=== PATIENT | male | born 1950 | race Caucasian/White ===

== ENCOUNTER → 2017-08-03 | Outpatient (CLI) | payer BC ==
[~2017-08-03] MED LIST: AMITRIPTYLINE H25 MG PO; AMITRIPTYLINE H50 MG PO; AMLODIPINE BESYL5 MG PO; IBUPROFEN600 MG PO; LISINOPRIL10 MG PO; LISINOPRIL30 MG PO; NORCO 7.5-3251 EACH PO; PANTOPRAZOLE SO40 MG PO; PREDNISONE20 MG PO
--- NOTE | 2017-08-03 13:48 | Diagnostic Imaging Report ---
PROCEDURE: Frontal and lateral views of the chest. COMPARISON: Patients [facility], , CHEST 2 VIEWS, 03/29/2015, 12:58. INDICATIONS: ACUTE BRONCHITIS FINDINGS: Lines/tubes: None. Lungs: Stable hyperinflated lungs and linear scarring in the superolateral right upper lung. No consolidation or pulmonary edema. Pleura: There is no pleural effusion or pneumothorax. Heart and mediastinum: The heart and the mediastinum are normal. Atherosclerotic calcification of the thoracic aorta. Bones: No acute bony abnormality. IMPRESSION: 1. Stable COPD and postoperative changes of prior wedge resection, without acute cardiopulmonary disease. Moreno George M.D. Dictated by: Moreno George M.D. on 08/03/2017 at 13:50 Electronically approved by: Moreno George M.D. on 08/03/2017 at 13:50
== END ==
LOC: RAD 11:36
DX: J20.9 Acute bronchitis, unspecified (principal)
CPT/HCPCS: 71046

== ENCOUNTER → 2017-11-21 | Outpatient (CLI) | payer BC ==
--- NOTE | 2017-11-21 15:40 | Diagnostic Imaging Report ---
PROCEDURE: CT CHEST WITHOUT CONTRAST CT scan of the chest WITHOUT intravenous contrast, using standard protocol. TECHNIQUE: The chest was scanned utilizing a multidetector helical scanner from the apex to the level of the adrenal glands. No IV contrast was administered. Coronal and sagittal multiplanar reformations were obtained. COMPARISON: 04/23/2015 INDICATIONS: SHORTNESS OF BREATH. PAIN ON INSPIRATION. COPD FINDINGS: Lines/tubes: None. Lungs and Airways: Severe centrilobular emphysema, unchanged. Subpleural scarring in the right upper lobe, unchanged. There are persistent scarlike opacities in the right middle lobe. The previously described centrilobular nodules and groundglass opacity in the right middle and lower lobes have significantly improved. These were likely infectious. The previously described ground glass opacities in the left upper lobe have also significantly improved. These were also likely infectious. No new consolidation or masses. Pleura: The pleural spaces are clear. Heart and mediastinum: The thyroid gland is normal. No significant mediastinal, hilar or axillary lymphadenopathy is seen. The heart and pericardium are within normal limits. There are atherosclerotic calcifications of the thoracic aorta and coronary arteries. Metallic artifacts around the distal esophagus and GE junction are presumably postsurgical. Soft tissues: Normal. Abdomen: Limited views of the upper abdomen. Metallic surgical clips in the left hepatic lobe and around the stomach. There are atherosclerotic calcifications of the aorta and its branches. There is a partially visualized subcentimeter hypodensity in the right kidney. This is incompletely evaluated. Bones: Mild multilevel degenerative changes of the thoracic spine. Cervical fusion hardware is partially visualized. IMPRESSION: Severe emphysema with multifocal scarring in both lungs. Scattered groundglass and nodular opacities described on prior examination (04/23/2015) have significantly improved and were likely infectious. No new focal consolidation or masses. Dictated by: Justice Acosta M.D. on 11/21/2017 at 15:46 Electronically approved by: Justice Acosta M.D. on 11/21/2017 at 15:46
== END ==
LOC: CT 13:29
PROVIDERS: ATTEND Internal Medicine Critical Care Medicine
DX: R06.02 Shortness of breath (principal); J18.9 Pneumonia, unspecified organism; J47.9 Bronchiectasis, uncomplicated; J84.10 Pulmonary fibrosis, unspecified; E46 Unspecified protein-calorie malnutrition
CPT/HCPCS: 71250

== ENCOUNTER 2018-07-21 14:21 | Emergency (ER) | payer BC, MEDICARE ==
[~2018-07-21] VITALS: Ht 175.3 cm; Wt 59.0 kg
--- OUTSIDE RECORDS SUMMARY | 2018-07-21 14:25 | XMS REPORT ---
Author Author [facility] Address Unknown Phone Unavailable Care Team Providers [employer] Custodian Name Role Phone Bipin SHETTY Unavailable Unavailable CALDERON, SOUHEFAVIO Unavailable Unavailable Payers Payer Name Policy Type Policy Number Effective Date Expiration Date Problems This patient has no known problems. Allergies, Adverse Reactions, Alerts Allergy Name Allergy Type Status Severity Reaction(s) Onset Date Inactive Date Treating Clinician Comments iodine DA Active SV 2014-09-17 00:00:00 Medications This patient has no known medications. Results Test Description Test Time Test Comments Text Results Atomic Results Result Comments CT CHEST WO 2017-11-21 15:46:00 [place] [address] Patient Name: FANNY VALDEZ MR #: [id number] : 1950 Age/Sex: 66/M Req #: [id number] Physician: Ordered by: RAHEEL SHETTY MD Report #: [id number] Location: CT Room/Bed: Procedure: [id number] CT/CT CHEST WO Exam Date: 11/21/17 Exam Time: 1345 REPORT STATUS: Signed PROCEDURE: CT CHEST WITHOUT CONTRAST CT scan of the chest WITHOUT intravenous contrast, using standard protocol. TECHNIQUE: The chest was scanned utilizing a multidetector helical scanner from the apex to the level of the adrenal glands. No IV contrast was administered. Coronal and sagittal multiplanar reformations were obtained. COMPARISON: 04/23/2015 INDICATIONS: SHORTNESS OF BREATH. PAIN ON INSPIRATION. COPD FINDINGS: Lines/tubes: None. Lungs and Airways: Severe centrilobular emphysema, unchanged. Subpleural scarring in the right upper lobe, unchanged. There are persistent scarlike opacities in the right middle lobe. The previously described centrilobular nodules and groundglass opacity in the right middle and lower lobes have significantly improved. These were likely infectious. The previously described ground glass opacities in the left upper lobe have also significantly improved. These were also likely infectious. No new consolidation or masses. Pleura: The pleural spaces are clear. Heart and mediastinum: The thyroid gland is normal. No significant mediastinal, hilar or axillary lymphadenopathy is seen. The heart and pericardium are within normal limits. There are atherosclerotic calcifications of the thoracic aorta and coronary arteries. Metallic artifacts around the distal esophagus and GE junction are presumably postsurgical. Soft tissues: Normal. Abdomen: Limited views of the upper abdomen. Metallic surgical clips in the left hepatic lobe and around the stomach. There are atherosclerotic calcifications of the aorta and its branches. There is a partially visualized subcentimeter hypodensity in the right kidney. This is incompletely evaluated. Bones: Mild multilevel degenerative changes of the thoracic spine. Cervical fusion hardware is partially visualized. IMPRESSION: Severe emphysema with multifocal scarring in both lungs. Scattered groundglass and nodular opacities described on prior examination (04/23/2015) have significantly improved and were likely infectious. No new focal consolidation or masses. Dictated by: Rodolfo Acosta M.D. on 11/21/2017 at 15:46 Electronically approved by: Rodolfo Acosta M.D. on 11/21/2017 at 15:46 Dictated By: RODOLFO ACOSTA MD [id number] Transcribed By: HUANG on 11/21/17 1546 COPY TO: RAHEEL SHETTY MD, ABI CHEST 2 VIEWS [place] [id number] Patient Name: FANNY VALDEZ MR #: [id number] : 1950 Age/Sex: 66/M Req #: [id number] [facility] Physician: Ordered by: FRANCISCA CALDERON MD Report #: [id number] Location: [facility] Room/Bed: Procedure: [id number] DX/CHEST 2 VIEWS Exam Date: 08/03/17 Exam Time: 1145 REPORT STATUS: Signed PROCEDURE: Frontal and lateral views of the chest. COMPARISON: [facility], DX, CHEST 2 VIEWS, 03/29/2015, 12:58. INDICATIONS: ACUTE BRONCHITIS FINDINGS: Lines/tubes: None. Lungs: Stable hyperinflated lungs and linear scarring in the superolateral right upper lung. No consolidation or pulmonary edema. Pleura: There is no pleural effusion or pneumothorax. Heart and mediastinum: The heart and the mediastinum are normal. Atherosclerotic calcification of the thoracic aorta. Bones: No acute bony abnormality. IMPRESSION: 1. Stable COPD and postoperative changes of prior wedge resection, without acute cardiopulmonary disease. Norberto George M.D. Dictated by: Norberto George M.D. on 08/03/2017 at 13:50 Electronically approved by: Norberto George M.D. on 08/03/2017 at 13:50 Dictated By: NORBERTO GEORGE MD [id number] Transcribed By: HUANG on 08/03/17 1350 COPY TO: FRANCISCA CALDERON MD
== END 2018-07-21 14:55 | disposition home or self-care (01) ==
LOC: ER 14:21
DX: T25.212A Burn of second degree of left ankle, initial encounter (principal); X12.XXXA Contact with other hot fluids, initial encounter; Y92.008 Other place in unspecified non-institutional (private) residence as the place of occurrence of the external cause; J44.9 Chronic obstructive pulmonary disease, unspecified; F17.210 Nicotine dependence, cigarettes, uncomplicated
CPT/HCPCS: 99282

== ENCOUNTER → 2018-09-25 | Outpatient (CLI) | payer MEDICARE ==
--- NOTE | 2018-09-25 15:30 | Diagnostic Imaging Report ---
PROCEDURE: CT CHEST WITHOUT CONTRAST CT scan of the chest WITHOUT intravenous contrast, using standard protocol. TECHNIQUE: The chest was scanned utilizing a multidetector helical scanner from the apex to the level of the adrenal glands. No IV contrast was administered because of referring physician request. Coronal and sagittal multiplanar reformations were obtained. COMPARISON: CT chest 11/21/2017. INDICATIONS: SOB, PNEUMONIA, BRO FINDINGS: Lines/tubes: None. Lungs and Airways: Advanced emphysematous changes with right greater than left apical pleural-parenchymal scar, not significantly changed compared to prior. Coarse reticular opacities compatible with additional scar in the right middle lobe, with new superimposed groundglass opacities. Patchy groundglass opacity in the dependent left lower lobe. Otherwise no new consolidations or suspicious nodules. 6-7 mm nodule in the was not evident on the prior study. Unchanged nodularity and scarring along the right major fissure. Pleura: The pleural spaces are clear. Heart and mediastinum: Visualized portions of the thyroid gland appear normal. Atherosclerotic calcification of the thoracic aorta, great vessel origins, and [place] coronary arteries. No ectasia or aneurysmal dilatation of the thoracic aorta. Pulmonary outflow tract is of normal caliber. No axillary, hilar, or mediastinal lymphadenopathy. No pericardial effusion. Soft tissues: No focal soft tissue abnormalities. Multiple foci of streak artifact presumably related to surgical material at the gastroesophageal junction. Abdomen: Visualized portions of the liver, adrenals, and pancreas are unremarkable. Calcified splenic granulomata. Bones: No osseous destructive lesions. Degenerative changes of the shoulder girdles. IMPRESSION: Patchy ground less opacities in the right middle lobe and left lower lobe concerning for multifocal infection. New 6-7 mm right upper lobe pulmonary nodule is likely infectious or inflammatory. Followup CT scan of the chest in one year may be obtained to assess for stability per [employer] 2017 guidelines. Advanced background emphysematous changes with biapical fibrocalcific change, right greater than left. Dictated by: Ted Barahona M.D. on 09/25/2018 at 15:34 Electronically approved by: Ted Barahona M.D. on 09/25/2018 at 15:34
== END ==
LOC: CT 13:54
PROVIDERS: ATTEND Internal Medicine Critical Care Medicine
DX: R06.02 Shortness of breath (principal); J18.9 Pneumonia, unspecified organism; J84.116 Cryptogenic organizing pneumonia; J47.9 Bronchiectasis, uncomplicated; J84.10 Pulmonary fibrosis, unspecified; M94.0 Chondrocostal junction syndrome [Tietze]; E46 Unspecified protein-calorie malnutrition; Z87.891 Personal history of nicotine dependence
CPT/HCPCS: 71250

== ENCOUNTER 2019-05-19 15:37 | Observation (INO) | payer MEDICARE ==
[~2019-05-19] VITALS: Ht 175.3 cm; Wt 64.4 kg
[2019-05-19] MEDS ORDERED: SODIUM CHLORIDE 0.9% 1000ML 1,000 ML IV STA (15:46)
[2019-05-19] MEDS ORDERED: METHYLPREDNISOLONE SOD SUCC 125 MG/2ML VIAL IV STA (16:03)
[2019-05-19] MEDS ORDERED: ASPIRIN 81 MG ENTERIC COATED PO ONE (16:12)
[2019-05-19] MEDS ORDERED: FAMOTIDINE 20 MG/2 ML VIAL IV STA (16:14)
[2019-05-19] MEDS ORDERED: ASPIRIN 81 MG CHEW TAB PO ONE (16:15)
[2019-05-19] MEDS ORDERED: DIPHENHYDRAMINE HCL INJ 50 MG/ML VIAL IV ONE ×2 (16:15→16:30)
[2019-05-19 16:27] LABS: BASOPHILS % 0.2 % (0.0-1.0); EOSINOPHILS # (AUTO) 0.2 (0.0-0.4); EOSINOPHILS % 2.1 % (0.0-6.0); HEMATOCRIT 42.2 % (38.2-49.6); HEMOGLOBIN 14.1 g/dL (14.0-18.0); LYMPHOCYTES # (AUTO) 2.1 (1.0-3.2); LYMPHOCYTES % 23.5 % (18.0-39.1); MEAN CORPUSCULAR HEMOGLOBIN 31.3 pg (28-32); MEAN CORPUSCULAR HGB CONC 33.4 g/dL (31-35); MEAN CORPUSCULAR VOLUME 93.8 fL (81-99); MONOCYTES # (AUTO) 0.7 (0.2-0.8); MONOCYTES % 7.6 % (4.4-11.3); NEUTROPHILS # (AUTO) 5.9 (2.1-6.9); NEUTROPHILS % 66.4 % (38.7-80.0); PLATELET COUNT 141 x10e3/uL (140-360); RED CELL DISTRIBUTION WIDTH 12.2 % (11.7-14.4)
[2019-05-19 16:33] LABS: INR 0.95; PROTHROMBIN TIME 13.2 seconds (11.9-14.5)
[2019-05-19 16:34] LABS: PARTIAL THROMBOPLASTIN TIME 35.4 seconds (23.8-35.5)
[2019-05-19 16:42] LABS: ALANINE AMINOTRANSFERASE 18 IU/L (0-55); ALBUMIN 4.3 g/dL (3.5-5.0); ALBUMIN/GLOBULIN RATIO 1.5 (0.8-2.0); ALKALINE PHOSPHATASE 75 IU/L (40-150); ANION GAP 11.6 mmol/L (8-16); BLOOD UREA NITROGEN 11 mg/dL (7-26); BUN/CREATININE RATIO 11 (6-25); CALCIUM 10.1 mg/dL (8.4-10.2); CARBON DIOXIDE 31 mmol/L (22-29); CHLORIDE 101 mmol/L (98-107); CREATINE KINASE 39 IU/L (30-200); CREATININE, SERUM 0.96 mg/dL (0.72-1.25); EST GLOMERULAR FILTRATION RATE > 60 ML/MIN (60-); GLUCOSE 100 mg/dL (74-118); POTASSIUM 3.6 mmol/L (3.5-5.1); SODIUM 140 mmol/L (136-145)
--- NOTE | 2019-05-19 17:26 | Diagnostic Imaging Report ---
EXAMINATION: CHEST SINGLE (PORTABLE) INDICATION: Chest pain COMPARISON: Chest CT 09/25/2018 FINDINGS: LINES/TUBES:None LUNGS:The lungs are hyperinflated. Bilateral upper lobe predominant emphysematous changes. Interstitial opacities at the right lower lung zone. PLEURA:No pleural effusion or pneumothorax. MEDIASTINUM:The cardiomediastinal silhouette appears normal in size and shape. Atherosclerotic calcifications of the thoracic aorta. BONES/SOFT TISSUES:No acute osseous injury. ABDOMEN:No free air under the diaphragm. IMPRESSION: Hyperinflated lungs and severe emphysematous changes. Interstitial right lower lung opacities, likely related to chronic lung disease. Signed by: Viral Lewis MD on 05/19/2019 5:23 PM
[2019-05-19] MEDS ORDERED: ENALAPRILAT IV INJ 1.25 MG/ML VIAL IV STA (18:15)
[2019-05-19] MEDS ORDERED: NITROGLYCERIN 0.4 MG SUBL SL PRN (18:15)
[2019-05-19] MEDS ORDERED: FAMOTIDINE 20 MG/2 ML VIAL IV SCH (18:15)
[2019-05-19] MEDS ORDERED: ENALAPRILAT IV INJ 1.25 MG/ML VIAL ONE (18:16)
[2019-05-19] MEDS: FAMOTIDINE 20 MG/2 ML VIAL IV SCH (18:21)
--- NOTE | 2019-05-19 19:12 | Diagnostic Imaging Report ---
EXAMINATION: CTA scan of the chest with and without contrast. TECHNIQUE: Spiral CT images of the chest were performed from the lung apices to the level of the adrenal glands before and after the intravenous administration of cc of Omnipaque 300. Coronal and sagittal reformatted images were obtained. COMPARISON: None. CLINICAL HISTORY:Chest pain DISCUSSION: Evaluation of the proximal aorta is limited by motion artifact as this is not a gated study AORTA AND PROXIMAL BRANCHES: The thoracic aorta shows no evidence of aneurysm or dissection. There is no evidence of intramural or periaortic hematoma. Moderate soft and calcified atherosclerotic plaque is noted predominantly in the descending aorta and to a lesser degree at the aortic arch. Two penetrating ulcers are noted in the descending aorta (series 5, images 93 and 98). There is preservation of the sinotubular junction. Common origin of the innominate and left common carotid. The innominate, proximal subclavian, and common carotid arteries are normal in size. The visualized abdominal aorta is normal in size, with atherosclerotic calcified and soft plaque. Measurements of the aorta obtained orthogonal to the longitudinal axis on reconstruction views are as follows: 3.5 cm at the sino-tubular junction, 3.4 cm in the mid ascending aorta, 2.4 cm in the mid aortic arch, 2.6 cm in the proximal descending aorta, 2.4 cm in the mid descending aorta, 2.5 cm at the level of the diaphragmatic hiatus, 2.1 cm at the level of the celiac trunk, LINES/TUBES: None. LUNGS AND AIRWAYS: Marked bilateral centrilobular emphysematous changes. Focal groundglass opacities which coalesce into a focal consolidation with air bronchogram in the lateral right middle lobe (series 4, image 40). No other opacities or consolidation. No pulmonary nodules or masses. The airways are clear, without endobronchial lesions. PLEURA: No pneumothorax or pleural effusions. HEART AND MEDIASTINUM: The thyroid gland is normal. Heart size is normal. No pericardial effusion. Atherosclerotic calcification of the coronary arteries. LYMPH NODES: There is no mediastinal, hilar or axillary lymphadenopathy. ABDOMEN: Limited views of the contrast-enhanced upper abdomen show no abnormality within the visualized liver, pancreas, or kidneys. Mild splenomegaly, measuring 13.6 cm in AP diameter. The adrenal glands are normal. BONES AND SOFT TISSUES: No aggressive lytic lesions. Soft tissues are grossly unremarkable. IMPRESSION: 1. No evidence of aneurysmal dilation or dissection. No intramural or periaortic hematoma. 2. Two penetrating ulcers are noted in the descending aorta, without evidence of contrast extravasation. 3. Focal consolidation with air bronchograms in the lateral right middle lobe, which may represent pneumonia in the appropriate clinical setting and less likely aspiration. 4. Marked bilateral centrilobular emphysematous changes. Signed by: Dr. Moreno George M.D. on 05/19/2019 7:10 PM
[2019-05-19] MEDS ORDERED: IOPAMIDOL 370 MG/ML 200 ML INFUS..BTL INJ ONE (20:09)
[2019-05-19] MEDS ORDERED: SODIUM CHLORIDE 0.9% 100 ML ONE (20:09)
[2019-05-19] MEDS: CEFTRIAXONE SOD 1 GM/NS 50 ML 50 ML IV SCH (20:41)
[2019-05-19] MEDS ORDERED: AZITHROMYCIN 500MG/NS 250 ML 250 ML IV SCH (21:00)
--- NOTE | 2019-05-19 21:00 | NUR ---
PATIENT WAS BROUGHT FROM ER [facility]IN WHEEL CHAIR WITH C/O CHEST PAIN.ASSESSMENT DONE.AAOX3.NO RESP.DISTRESS.CHEST PAIN VOICE 06/02.TELE#8 SR.IV TO LEFT AC#18 G PATENT.PROVIDED SNACKS.ORIENTED TO THE UNIT.BED LOCKED AND IN LOWEST POSITION.PHONE AND CALL LIGHT WITHIN REACH.INSTRUCTED TO CALL FOR ASSISTANCE NEEDED.
[2019-05-19 21:14] VITALS: BP 157/73
[2019-05-19 21:22] VITALS: BP 157/73
[2019-05-19 21:33] VITALS: BP 157/73
[2019-05-19] MEDS: ONDANSETRON HCL INJ 2MG/ML 2ML 2 MG/ML VIAL IV PRN (22:30)
[2019-05-19] MEDS: MORPHINE SULFATE 2 MG/ML SYR 1ML IV PRN (22:35)
--- NOTE | 2019-05-19 23:39 | NUR ---
BLOOD SIDRA AND SENT TO THE LAB FOR CARDIAC MARKERS.PATIENT TOLERATED WELL.
[2019-05-20] VITALS (9 sets, daily range): BP systolic 129–164; BP diastolic 63–87
[2019-05-20] MEDS ORDERED: AMITRIPTYLINE HCL 25 MG TAB PO SCH ×3 (00:15→21:00)
[2019-05-20] MEDS ORDERED: ALBUTEROL/IPRATROPIUM 3 ML NEB NEB PRN (00:15)
--- NOTE | 2019-05-20 00:40 | NUR ---
Call placed to regarding breathing treatment order.
--- NOTE | 2019-05-20 02:00 | NUR ---
PATIENT IS TAKING PROAIR 2 PUFF HS.
[2019-05-20] MEDS: MORPHINE SULFATE 2 MG/ML SYR 1ML IV PRN ×4 (02:09→20:20)
[2019-05-20 04:16] LABS: CREATINE KINASE 40 IU/L (30-200)
[2019-05-20] MEDS: FAMOTIDINE 20 MG/2 ML VIAL IV SCH (05:41)
--- NOTE | 2019-05-20 05:43 | NUR ---
SLEPT WELL DURING NIGHT.NO CHEST PAIN VOICED .STABLE CONDITION.
[2019-05-20 05:49] LABS: BASOPHILS % 0.3 % (0.0-1.0); EOSINOPHILS % 0.1 % (0.0-6.0); HEMATOCRIT 37.6 % (38.2-49.6); LYMPHOCYTES # (AUTO) 1.8 (1.0-3.2); LYMPHOCYTES % 24.6 % (18.0-39.1); MEAN CORPUSCULAR HEMOGLOBIN 32.3 pg (28-32); MEAN CORPUSCULAR HGB CONC 34.6 g/dL (31-35); MEAN CORPUSCULAR VOLUME 93.3 fL (81-99); MONOCYTES # (AUTO) 0.6 (0.2-0.8); NEUTROPHILS # (AUTO) 4.8 (2.1-6.9); NEUTROPHILS % 66.9 % (38.7-80.0); PLATELET COUNT 120 x10e3/uL (140-360); RED BLOOD COUNT 4.03 x10e6/uL (4.3-5.7); RED CELL DISTRIBUTION WIDTH 12.1 % (11.7-14.4)
[2019-05-20 06:05] LABS: CREATINE KINASE 35 IU/L (30-200)
[2019-05-20 06:27] LABS: ALANINE AMINOTRANSFERASE 15 IU/L (0-55); ALBUMIN 3.6 g/dL (3.5-5.0); ALBUMIN/GLOBULIN RATIO 1.3 (0.8-2.0); ALKALINE PHOSPHATASE 70 IU/L (40-150); ANION GAP 10.2 mmol/L (8-16); BLOOD UREA NITROGEN 15 mg/dL (7-26); BUN/CREATININE RATIO 18 (6-25); CALCIUM 9.3 mg/dL (8.4-10.2); CARBON DIOXIDE 28 mmol/L (22-29); CHLORIDE 103 mmol/L (98-107); CHOL/HDL RATIO 3.9 (3.9-4.7); CHOLESTEROL 163 MD/DL (0-199); CREATININE, SERUM 0.84 mg/dL (0.72-1.25); EST GLOMERULAR FILTRATION RATE > 60 ML/MIN (60-); GLUCOSE 124 mg/dL (74-118); HDL CHOLESTEROL 42 MG/DL (40-60); LDL CHOLESTEROL 108 MG/DL (60-130); POTASSIUM 4.2 mmol/L (3.5-5.1); SODIUM 137 mmol/L (136-145); TRIGLYCERIDES 64 MG/DL (0-149)
--- NOTE | 2019-05-20 06:38 | NUR ---
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 Pt states that he has been coughing for 1 week, minimal SOB. Developed substernal CP 1 day ago. Last stress test >5yrs ago. PMH: PNA, GERD, HTN, Nicotine dependence in remission, PUD s/p surgical mgmt, Asbestos exposure PShx: right arm, back, GI tract surgery for PUD, cervical fusion Allergies; see emr FH/SH; asbestos-containing building demolition in 1974, Etoh use -heavy for 15 yrs; Meds; see MAY ROS; no f/c/s/N/V/D/DE LA TORRE/skin rash/back pain/focal limb weakness/confusion/dizziness/ v/s; revd PE: tired appearing anicteric ns1s2 Chest wall tender in left region; mod bs soft nt nd no e/t skin dry n. affect a&ox3; leon labs/meds revd A/P: 68yoM PNA- possibly aspiration PNA; azithromycin/ceftriaxone/antitussives Musculoskeletal CP on left chest - related to coughing? trend enzymes; cardio eval HTN- amlodipine GERD- pepcid Nicotine dependence in remission- U/S abdomen outpt with PCP Prop: lovenox; pepcid Dispo: f/u cardio eval Les Fong MD, PhD
[2019-05-20] MEDS: ONDANSETRON HCL INJ 2MG/ML 2ML 2 MG/ML VIAL IV PRN ×3 (06:43→20:20)
[2019-05-20] MEDS ORDERED: DOCUSATE SODIUM 100 MG CAP PO PRN (06:45)
[2019-05-20] MEDS ORDERED: ACETAMINOPHEN 325 MG TAB PO PRN (06:45)
--- NOTE | 2019-05-20 07:00 | NUR ---
PER THE REPORT FROM ER IS AWARE OF THE CONSULTS.BED SIDE SHIFT REPORT GIVEN TO ONCOMING RN.STABLE CONDITION.
--- NOTE | 2019-05-20 07:00 | NUR ---
Bedside report done. pt is alert resting in bed, no s/s of distress. call light within reach and instructed pt to call RN for help. bed safety in place
[2019-05-20] MEDS ORDERED: FAMOTIDINE 20 MG TAB PO SCH (07:30)
[2019-05-20] MEDS: ASPIRIN 81 MG ENTERIC COATED PO SCH (08:58)
[2019-05-20] MEDS: LISINOPRIL 20 MG TAB PO SCH ×2 (08:58→17:21)
[2019-05-20] MEDS: BENZONATATE 100 MG CAP PO SCH ×3 (08:58→20:29)
[2019-05-20] MEDS: LORATADINE 10 MG TAB PO SCH (08:58)
[2019-05-20] MEDS: PANTOPRAZOLE SOD 40 MG TABEC PO SCH (08:59)
[2019-05-20] MEDS ORDERED: AMLODIPINE BESYLATE 5 MG TAB PO SCH (09:00)
[2019-05-20] MEDS: GUAIFENESIN/DEXTROMETHORPHAN LIQD 5 ML UDC NG SCH ×3 (09:01→20:29)
--- NOTE | 2019-05-20 10:45 | NUR ---
provided pt education on exercise stress test, questions/concerns addressed. pt signed consent form and RN left pt education at the bedside.
[2019-05-20] MEDS ORDERED: ENOXAPARIN SOD INJ 40 MG/0.4 ML SYR SC SCH ×2 (17:00)
--- NOTE | 2019-05-20 17:02 | Consultation ---
DATE OF CONSULTATION: Cardiology Consultation HISTORY OF PRESENT ILLNESS: This is a 68-year-old male with a history of tobacco abuse, hypertension, gastroesophageal reflux disease, and COPD, who presented to our office with chest discomfort. The patient states that he has been having waxing and waning, sharp chest discomfort, wnnndbjq-ca-ixgnsn in intensity, occasionally worse with exertion, radiation to the back and shoulder areas associated with stable shortness of breath. REVIEW OF SYSTEMS: A 12-point review of system was conducted, is negative except as stated above in the HPI. PAST MEDICAL HISTORY: As stated above in the HPI. PAST SURGICAL HISTORY: None recent. PAST FAMILY HISTORY: Noncontributory to current illness. SOCIAL HISTORY: Tobacco use. ALLERGIES: IODINE. BODY AFTER REPORT TITLE: MEDICATIONS: See medication reconciliation form. PHYSICAL EXAMINATION: VITAL SIGNS: Temperature is 97, heart rate 76, respirations are 20, blood pressure is 164/82, oxygen saturation 99% on room air. GENERAL: Well-appearing, no apparent distress. HEAD: Normocephalic, atraumatic. Eyes, the extraocular muscles are intact. Conjunctivae are clear. NECK: No JVD. No bruits. CARDIOVASCULAR: Regular rate and rhythm. No murmurs. LUNGS: Clear to auscultation. ABDOMEN: Soft, nontender, nondistended. EXTREMITIES: No clubbing, cyanosis, or edema. VASCULAR: 2+ pulses. NEUROLOGIC: No focal deficits noted. LABORATORY DATA: Reviewed. Cardiac enzymes are negative x3. BNP is 47. A 2D electrocardiogram shows normal sinus rhythm, left ventricular hypertrophy with nonspecific ST-T wave abnormalities. Chest x-ray shows hyperinflated lungs with interstitial right lower lung opacities. CT angiogram of the chest shows no evidence of aneurysm or dissection. No intramural hematomas. Two penetrating ulcers are noted in the descending aorta. Focal consolidation of air bronchograms in the lateral right middle lobe and marked bilateral centrilobular emphysematous changes. IMPRESSION: 1. Precordial pain. 2. Hypertension. 3. Atherosclerotic disease. 4. Chronic obstructive pulmonary disease. 5. Chronic bronchitis. RECOMMENDATIONS: This patient ruled out for acute myocardial infarction. CT angiogram showed no dissection or aneurysm. Did show some penetrating ulcers and will need to ensure adequate blood pressure control. Increase amlodipine as needed for better blood pressure control. He is already on 40 mg of lisinopril. We will try to avoid beta blockers given severe COPD. Infectious treatment per primary team with antibiotics. We will start statin for his vascular disease. The patient will need an echocardiogram and a stress test prior to discharge. DO MERARI Blackmon/ESTHER /[id number]
--- NOTE | 2019-05-20 19:00 | NUR ---
Received the patient in report.lyeing in the bed.headache voiced 08/02.no resp.distress.stable condition.aaox3.ambulates independently.bed locked an din lowest position.phone and call light within reach.instructed to call for assistance as needed.
--- NOTE | 2019-05-20 19:27 | NUR ---
Medicated with Tylenol 650 mg po.keep monitor the patient.
[2019-05-20] MEDS: CEFTRIAXONE SOD 1 GM/NS 50 ML 50 ML IV SCH (20:04)
[2019-05-20] MEDS ORDERED: ZOLPIDEM TARTRATE 5 MG TAB PO PRN (21:00)
[2019-05-20] MEDS ORDERED: AZITHROMYCIN 250 MG TAB PO SCH (21:00)
[2019-05-21 04:23] VITALS: BP 148/75
[2019-05-21] MEDS: GUAIFENESIN/DEXTROMETHORPHAN LIQD 5 ML UDC NG SCH (05:21)
--- NOTE | 2019-05-21 06:19 | NUR ---
IM- progress note O/N see below ROS; no f/c/s/N/V/D/DE LA TORRE/skin rash/back pain/focal limb weakness/confusion/dizziness/ v/s; revd PE: tired appearing anicteric ns1s2 Chest wall tender in left region; mod bs soft nt nd no e/t skin dry n. affect a&ox3; leon labs/meds revd A/P: 68yoM PNA- possibly aspiration PNA; azithromycin/ceftriaxone/antitussives Musculoskeletal CP on left chest - related to coughing? trend enzymes; cardio eval HTN- amlodipine GERD- pepcid Nicotine dependence in remission- U/S abdomen outpt with PCP Prop: lovenox; pepcid Dispo: f/u cardio eval 05/21 stress test and echo pending; Les Fong MD, PhD
[2019-05-21] MEDS: ONDANSETRON HCL INJ 2MG/ML 2ML 2 MG/ML VIAL IV PRN (06:22)
[2019-05-21] MEDS: MORPHINE SULFATE 2 MG/ML SYR 1ML IV PRN (06:23)
[2019-05-21 06:40] LABS: ANION GAP 10.1 mmol/L (8-16); BASOPHILS % 0.3 % (0.0-1.0); BLOOD UREA NITROGEN 19 mg/dL (7-26); BUN/CREATININE RATIO 23 (6-25); CALCIUM 8.9 mg/dL (8.4-10.2); CARBON DIOXIDE 28 mmol/L (22-29); CHLORIDE 104 mmol/L (98-107); CREATININE, SERUM 0.82 mg/dL (0.72-1.25); EOSINOPHILS # (AUTO) 0.4 (0.0-0.4); EOSINOPHILS % 5.2 % (0.0-6.0); EST GLOMERULAR FILTRATION RATE > 60 ML/MIN (60-); GLUCOSE 94 mg/dL (74-118); HEMATOCRIT 38.1 % (38.2-49.6); HEMOGLOBIN 13.1 g/dL (14.0-18.0); LYMPHOCYTES # (AUTO) 2.3 (1.0-3.2); LYMPHOCYTES % 33.8 % (18.0-39.1); MEAN CORPUSCULAR HEMOGLOBIN 32.1 pg (28-32); MEAN CORPUSCULAR HGB CONC 34.4 g/dL (31-35); MEAN CORPUSCULAR VOLUME 93.4 fL (81-99); MONOCYTES # (AUTO) 0.7 (0.2-0.8); MONOCYTES % 9.4 % (4.4-11.3); NEUTROPHILS # (AUTO) 3.5 (2.1-6.9); PLATELET COUNT 120 x10e3/uL (140-360); POTASSIUM 4.1 mmol/L (3.5-5.1); RED BLOOD COUNT 4.08 x10e6/uL (4.3-5.7); RED CELL DISTRIBUTION WIDTH 12.2 % (11.7-14.4); SODIUM 138 mmol/L (136-145)
--- NOTE | 2019-05-21 07:00 | NUR ---
BED SIDE SHIFT REPORT GIVEN TO ONCOMING RN.STABLE CONDITION.
[2019-05-21 08:15] VITALS: BP 143/74
[2019-05-21 08:50] VITALS: BP 143/74
[2019-05-21] MEDS: LORATADINE 10 MG TAB PO SCH (09:00)
[2019-05-21] MEDS: LISINOPRIL 20 MG TAB PO SCH (09:00)
[2019-05-21] MEDS ORDERED: AMLODIPINE BESYLATE 10 MG TAB PO SCH (09:00)
[2019-05-21] MEDS: BENZONATATE 100 MG CAP PO SCH (09:00)
[2019-05-21] MEDS: PANTOPRAZOLE SOD 40 MG TABEC PO SCH (09:00)
[2019-05-21] MEDS: ASPIRIN 81 MG ENTERIC COATED PO SCH (09:00)
[2019-05-21 09:29] VITALS: BP 143/74
[2019-05-21] MEDS ORDERED: ONDANSETRON HCL 4 MG ORAL DISINTEGRATING TAB PO PRN (10:00)
[2019-05-21 11:41] VITALS: BP 135/74
--- NOTE | 2019-05-21 12:42 | Progress Note ---
DATE: Cardiology Progress Note SUBJECTIVE: The patient is feeling better. He is seen walking in the hallways. Denies any chest pain or palpitations. OBJECTIVE: VITAL SIGNS: Temperature 97.5, heart rate is 70, respirations 18, blood pressure is 143/74, and oxygen saturation 98% on room air. GENERAL: Well-appearing, in no apparent distress. CARDIOVASCULAR: Regular rate and rhythm. LUNGS: Clear to auscultation. ABDOMEN: Soft, nontender, and nondistended. EXTREMITIES: No clubbing, cyanosis, or edema. CARDIOVASCULAR MEDICATIONS: Reviewed. LABORATORY DATA: Reviewed. Hemoglobin 13.1. Creatinine 0.82. Stress test showed normal myocardial perfusion and normal left ventricular ejection fraction. Echocardiogram pending. IMPRESSION: 1. Precordial pain, resolved. 2. Hypertension. 3. Atherosclerotic disease. 4. Chronic obstructive pulmonary disease. 5. Chronic bronchitis. RECOMMENDATIONS: The patient ruled out for acute myocardial infarction. CT angiogram showed no aortic dissection or aneurysm. This did show penetrating ulcers that will need to be treated with adequate blood pressure control and statin. I increased his amlodipine for better blood pressure control. Antibiotics per primary team. Stress test showed no myocardial ischemia. His echocardiogram is pending, however, if this is normal, he may be discharged from a cardiovascular standpoint. DO MERARI Blackmon/ESTHER /[id number]
--- NOTE | 2019-05-21 13:14 | NUR ---
Per Odalis Dodson told her patinet can be discharged if okay with Dr. Fong. Charge nurse Cooper aware and has paged him for orders
[2019-05-21] MEDS ORDERED: ZITHROMAX500 MG PO (13:23)
[2019-05-21] MEDS ORDERED: LORATADINE10 MG PO (13:23)
[2019-05-21] MEDS ORDERED: TESSALON PERLE100 MG PO (13:23)
--- NOTE | 2019-05-21 13:27 | NUR ---
D/C summary Principal dx: PNA- possibly aspiration PNA; azithromycin/ceftriaxone/antitussives Musculoskeletal CP on left chest - related to coughing? trend enzymes; cardio eval SEcondary dx: HTN- amlodipine GERD- pepcid Nicotine dependence in remission- U/S abdomen outpt with PCP Prop: lovenox; pepcid Dispo: f/u cardio eval 05/21 stress test and echo pending; d/c home f/u wit cardiology for echo results stable d/c>35mins Les Fong MD, PhD
== END 2019-05-21 14:25 | disposition home or self-care (01) ==
LOC: ER 15:37 → ERHOLD 18:05 → MED/SURG 20:58
PROVIDERS: ADMIT Internal Medicine; ATTEND Internal Medicine
DX: R07.89 Other chest pain (principal); I10 Essential (primary) hypertension; K21.9 Gastro-esophageal reflux disease without esophagitis; Z87.891 Personal history of nicotine dependence; J44.9 Chronic obstructive pulmonary disease, unspecified; I25.10 Atherosclerotic heart disease of native coronary artery without angina pectoris
CPT/HCPCS: 36415 ×3; 71045; 71275; 78452; 80048; 80053 ×2; 80061; 82550 ×2; 82553 ×2; 83735; 83880; 84484 ×2; 85025 ×3; 85610; 85730; 87040; 93005; 93017; 93306; 94640; 99284; A9502; G0378 ×3; J0456; J0696 ×2; J1200; J1650; J2270 ×3; J2405 ×3; J2930; J7030; J7050; Q9967; S0164

== ENCOUNTER 2019-07-07 18:45 | Emergency (ER) | payer MEDICARE ==
[~2019-07-07] VITALS: Ht 175.3 cm; Wt 64.4 kg
[~2019-07-07 18:45] MED LIST changes: +LORATADINE10 MG PO; +TESSALON PERLE100 MG PO; +ZITHROMAX500 MG PO
[2019-07-07] MEDS ORDERED: HYDROCODONE/APAP 7.5MG-325MG 1 EA TAB PO PRN (20:00)
[2019-07-07] MEDS ORDERED: CYCLOBENZAPRINE HCL 10 MG TAB PO ONE (20:00)
[2019-07-07] MEDS ORDERED: KETOROLAC TROMETHAMINE 60 MG/2 ML VIAL IM ONE (20:00)
--- NOTE | 2019-07-07 22:03 | Diagnostic Imaging Report ---
EXAMINATION: CHEST 2 VIEWS INDICATION: Sharp right-sided pain COMPARISON: Chest x-ray and CT 05/19/2019 FINDINGS: TUBES and LINES: None. LUNGS: Hyperinflated lungs. Pulmonary wedge resection adrian in the right midlung periphery. Lucencies in the upper lungs. Slight improvement in right mid lung haziness compared to 05/19/2019. Subtle increase in focal left central lower lung haziness adjacent to the left heart border. PLEURA: No pleural effusion or pneumothorax. HEART AND MEDIASTINUM: The cardiomediastinal silhouette is within normal size limits. Surgical clips in the lower central mediastinum. Aortic calcifications. BONES AND SOFT TISSUES: Degenerative changes in the spine and shoulders. Soft tissues are unremarkable. Cervical fixation hardware. UPPER ABDOMEN: No free air under the diaphragm. IMPRESSION: Slight improvement in right mid lung haziness, in keeping with improvement of pneumonia which was seen on 05/19/2019. Subtle increase in focal left central lower lung haziness adjacent to the left heart border, could be atelectasis or pneumonia. Recommend follow-up chest x-ray in 6-8 weeks. Findings of pulmonary emphysema. Signed by: Trever Landaverde DO on 07/07/2019 10:00 PM
[2019-07-07 22:49] VITALS: BP 173/98
== END 2019-07-07 22:45 | disposition home or self-care (01) ==
LOC: ER 18:45
DX: S29.012A Strain of muscle and tendon of back wall of thorax, initial encounter (principal); S23.3XXA Sprain of ligaments of thoracic spine, initial encounter; X50.9XXA Other and unspecified overexertion or strenuous movements or postures, initial encounter; Y92.89 Other specified places as the place of occurrence of the external cause; I10 Essential (primary) hypertension; J44.9 Chronic obstructive pulmonary disease, unspecified; K21.9 Gastro-esophageal reflux disease without esophagitis
CPT/HCPCS: 71046; 93005; 99283; J1885

== ENCOUNTER 2019-08-22 22:16 | Observation (INO) | payer MEDICARE ==
[~2019-08-22] VITALS: Ht 175.3 cm; Wt 64.4 kg
--- OUTSIDE RECORDS SUMMARY | 2019-08-22 22:20 | XMS REPORT ---
Author Author [facility] Organization [facility] Address [address] [place] [address] Phone Unavailable Care Team Providers Care Silk Screen Printer Name Role Phone FRANCISCA CALDERON MD PCP SAMMI GARCÍA Attphys Unavailable LES HOPE Attphys Unavailable Bipin SHETTY Attphys Unavailable FRNACISCA CALDERON Attphys Unavailable LES HOPE Admkavin Unavailable Payers Payer Name Policy Type Policy Number Effective Date Expiration Date Eloisa duncan [facility] Medicare Complete [id number] [facility] Ppo [id number] [facility] Problems Condition Name Condition Details Condition Category Status Onset Date Resolution Date Last Treatment Date Treating Clinician Comments Source Pneumonia Pneumonia Problem Active 2014-09-05 00:00:00 [facility] Chest pain Chest pain Problem Active C [facility] Allergies, Adverse Reactions, Alerts Allergy Name Allergy Type Status Severity Reaction(s) Onset Date Inacti ve Date Treating Clinician Comments Source Iodine Allergy to Substance Active Mild 2015-11-25 00:00:00 [facility] iodine DA Active SV 2014-09-17 00:00:00 [facility] Medications Ordered Medication Name Filled Medication Name Start Date Stop Da te Current Medication? Ordering Clinician Indication Dosage Frequency Signature (SIG) Comments Components Source Azithromycin (Zithromax) 500 Mg Tablet Azithromycin (Zithrom ax) 500 Mg Tablet 2019-05-21 00:00:00 Yes Les Hope Md [address] [facility] Benzonatate (Tessalon Perle) 100 Mg Capsule Benzonatat e (Tessalon Perle) 100 Mg Capsule 2019-05-21 00:00:00 Yes Les Hope Md [address] T [address] A Day [facility] Loratadine 10 Mg Tablet Loratadine 10 Mg Tablet 2019-05-21 00:00:00 Yes Les Hope Md 10 Daily [facility] Amitriptyline Hcl 50 Mg Tablet Amitriptyline Hcl 50 Mg Tablet Yes 100 Bedtime [facility] Amlodipine Besylate 5 Mg Tablet Amlodipine Besylate 5 Mg Tablet Yes 5 Daily [facility] Lisinopril 10 Mg Tablet Lisinopril 10 Mg Tablet Yes [address] [facility] Pantoprazole Sodium (Protonix) 40 Mg Tablet. Pantopr azole Sodium (Protonix) 40 Mg Tablet. Yes [address] [facility] Lisinopril 30 Mg Tablet, 30 Mg Oral Lisinopril 30 Mg Tablet, 30 Mg Oral 2015-11-25 00:00:[address] [facility] Prednisone 20 Mg Tab, 40 Mg Oral Prednisone 20 Mg Tab, 40 Mg Ora l 2015-11-25 00:00:[address] [facility] Hydrocodone Bit/Acetaminophen ([place] 7.5-325 Tablet) 1 Each Tablet, Oral Hydrocodone Bit/Acetaminophen ([place] 7.5-325 Tablet) 1 Each Tablet, Oral 2014-09-05 00:00:[address] [facility] Hydrocodone Bit/Acetaminophen ([place] 7.5-325 Tablet) 1 Each Tablet, 1 Tab Oral Hydrocodone Bit/Acetaminophen ([place] 7.5-325 Tablet) 1 Each Tablet, 1 Tab Oral 2014-09-05 00:00:00 No 1 Every 4-[address] [facility] Ibuprofen 600 Mg Tablet, Mg Oral Ibuprofen 600 Mg Tablet, Mg O ral 2014-09-05 00:00:[address] [facility] Amitriptyline Hcl 25 Mg Tablet, 50 Mg Oral Amitriptyli ne Hcl 25 Mg Tablet, 50 Mg Oral 2012-05-10 00:00:[address] [facility] Procedures Procedure Date / Time Performed Performing Clinician [facility] e X-ray of chest, two views 2019-07-07 00:00:00 VIRI MCNEILL [facility] CT angiography of chest 2019-05-19 00:00:[address] [facility] Computed tomography of chest without contrast 2018-09-25 00: 00:[address] [facility] Encounters Start Date/Time End Date/Time Encounter Type Admission Type Attendi [facility] Care Department Encounter ID Source 2019-07-07 18:45:00 2019-07-07 22:45:00 Departed Emergency Room 1 SAMMI GARCÍA [facility] [id number] [facility] 2019-05-19 18:05:00 2019-05-21 14:25:00 Discharged Inpatient (obs) 1 LES HOPE [facility] [id number] [facility] 2018-09-25 13:54:00 2018-09-25 13:54:00 Registered Clinic 3 RAHEEL SHETTY [facility] [id number] [facility] 2018-07-21 14:21:00 2018-07-21 14:55:00 Departed Emergency Room [facility] [id number] [facility] 2017-11-21 13:29:00 2017-11-21 13:29:00 Registered Clinic 3 RAHEEL SHETTY [facility] [id number] [facility] Results Test Description Test Time Test Comments Results Result Comments Source CHEST 2 VIEWS 2019-07-07 21:51:00 [place] [address] Patient Name: FANNY VALDEZ SR MR #: [id number] : 1950 Age/Sex: 68/M Req #: [id number] Adm Physician: Ordered by: VIRI MCNEILL SQL DATA ANALYST Report #: [id number] Location: ER Room/Bed: Procedure: [id number] DX/CHEST 2 VIEWS Exam Date: 07/07/19 Exam Time: 2056 REPORT STATUS: Signed EXAMINATION: CHEST 2 VIEWS INDICATION: Sharp right-sided pain COMPARISON: Chest x-ray and CT 05/19/2019 FINDINGS: TUBES and LINES: None. LUNGS: Hyperinflated lungs. Pulmonary wedge resection adrian in the right midlung periphery. Lucencies in the upper lungs. Slight improvement in right mid lung haziness compared to 05/19/2019. Subtle increase in focal left central lower lung haziness adjacent to the left heart border. PLEURA: No pleural effusion or pneumothorax. HEART AND MEDIASTINUM: The cardiomediastinal silhouette is within normal size limits. Surgical clips in the lower central mediastinum. Aortic calcifications. BONES AND SOFT TISSUES: Degenerative changes in the spine and shoulders. Soft tissues are unremarkable. Cervical fixation hardware. UPPER ABDOMEN: No free air under the diaphragm. IMPRESSION: Slight improvement in right mid lung haziness, in keeping with improvement of pneumonia which was seen on 05/19/2019. Subtle increase in focal left central lower lung haziness adjacent to the left heart border, could be atelectasis or pneumonia. Recommend follow- up chest x-ray in 6-8 weeks. Findings of pulmonary emphysema. Signed by: Trever Reyes DO on 07/07/2019 10:00 PM Dictated By: TREVER REYES DO 99 Transcribed By: NELLY on 07/07/192199 COPY TO: VIRI MCNEILL NP Stress Test - Treadmill ONLY 2019-05-29 10:38:00 [place] [address] Patient Name : FANNY VALDEZ SR MR #: [id number] : 1950 Age/Sex: 68/M Adm Physician : LES HOPE MD Admit Date : 05/19/19 Location : MED/SURG Room/Bed : [facility] REPORT: Myoview Stress Test DATE OF STUDY: 05/20/2019 08:58:00 Stress Test - Treadmill ONLY PROCEDURE TITLE: Rest/stress single isotope SPECT imaging with exercise stress and gated SPECT imaging. INDICATION: Chest pain. PROCEDURE IN DETAIL: The patient performed treadmill exercise using a Kofi protocol exercising for 9 minutes 1 seconds to stage III and completing estimated workload of 10.1 metabolic equivalents (METs). The test was terminated due to achieving target heart rate. The heart rate was 69 beats per minute at rest and increased to 135 beats per minute at peak exercise, which was 88% of the maximum predicted heart rate. The resting blood pressure was 170/100 mmHg and increased to 190/102 mmHg, which is a normal response. The resting electrocardiogram demonstrated normal sinus rhythm. There were no ST-segment changes suggestive of myocardial ischemia. Myocardial perfusion imaging was performed at rest following the injection of 11 mCi of tetrofosmin. At peak exercise, the patient was injected with 33 mCi of tetrofosmin and exercise was continued for 1 minute. Gated post-stress tomographic imaging was performed. FINDINGS: The overall quality of study is fair. Left ventricular cavity is noted be normal size on the rest and stress studies. SPECT images demonstrated homogeneous tracer distribution throughout the myocardium. Gated SPECT imaging reveals normal myocardial thickening and wall motion. Left ventricular ejection fraction is calculated to be 60%. IMPRESSION: Myocardial perfusion imaging is normal. Overall left ventricular systolic function was normal without regional wall motion abnormalities. Destiny Palacios MD ABS/ESTHER J #: [id number] Signature Date Dictated By: DESTINY PALACIOS MD Transcribed By: ESTHER on 05/29/19 <Electronically signed by DESTINY PALACIOS MD><<Signature on File>>06/24/19 [id number] COPY TO: Blood Culture 2019-05-24 20:32:00 Test Item Blood Culture (test code = 89299069) NO GROWTH AFTER 5 DAYS, FINAL REPORT [facility] Zsqto3985-96-25 06:50:00* Test Item Value Reference Range Interpretation Comments White Blood Count (test code = 6690-2) 6.93 4.8-10.8 [facility] CenterRed Blood Fkdri4790-86-46 06:50:00* Test Item Value Reference Range Interpretation Comments Red Blood Count (test code = 789-8) 4.08 4.3-5.[address] [facility] CenterHemoglobin2020-02-26 06:50:00* Test Item Value Reference Range Interpretation Comments Hemoglobin (test code = 97913-0) 13.1 14.0-18.[address] [facility] CenterHematocrit2020-02-26 06:50:00* Test Item Value Reference Range Interpretation Comments Hematocrit (test code = 4544-3) 38.1 38.2-49.[address] [facility] CenterMean Corpuscular Kxbyea1951 06:50:00* Test Item Value Reference Range Interpretation Comments Mean Corpuscular Volume (test code = 787-2) 93.4 81-99 [facility] CenterMean Corpuscular Befnxuultt6145-52-87 06:50:00* Test Item Value Reference Range Interpretation Comments Mean Corpuscular Hemoglobin (test code = 785-6) 32.1 28-[address] [facility] CenterMean Corpuscular Hemoglobin Concent 2019-05-21 06:50:00* Test Item Value Reference Range Interpretation Comments Mean Corpuscular Hemoglobin Concent (test code = 786-4) 34.4 31-35 [facility] CenterRed Cell Distribution Kxjfi4343-40-76 06:50:00* Test Item Value Reference Range Interpretation Comments Red Cell Distribution Width (test code = 90925-7) 12.2 11.7 -14.4 [facility] CenterPlatelet Yftwb6804-31-85 06:50:00* Test Item Value Reference Range Interpretation Comments Platelet Count (test code = 777-3) 120 140-[address] [facility] CenterNeutrophils (%) (Auto)2019-05-21 06:50:00 * Test Item Value Reference Range Interpretation Comments Neutrophils (%) (Auto) (test code = 83597-4) 51.0 38.7-80.0 [facility] CenterLymphocytes (%) (Auto)2019-05-21 06:50:00 * Test Item Value Reference Range Interpretation Comments Lymphocytes (%) (Auto) (test code = 736-9) 33.8 18.0-39.1 [facility] CenterMonocytes (%) (Auto)2019-05-21 06:50:00* Test Item Value Reference Range Interpretation Comments Monocytes (%) (Auto) (test code = 5905-5) 9.4 4.4-11.3 [facility] CenterEosinophils (%) (Auto)2019-05-21 06:50:00 * Test Item Value Reference Range Interpretation Comments Eosinophils (%) (Auto) (test code = 713-8) 5.2 0.0-6.0 [facility] CenterBasophils (%) (Auto)2019-05-21 06:50:00* Test Item Value Reference Range Interpretation Comments Basophils (%) (Auto) (test code = 706-2) 0.3 0.0-1.0 [facility] CenterIM GRANULOCYTES %2019-05-21 06:50:00* Test Item Value Reference Range Interpretation Comments IM GRANULOCYTES % (test code = IM GRANULOCYTES %) 0.3 0.0- 1.0 [facility] CenterNeutrophils # (Auto)2019-05-21 06:50:00* Test Item Value Reference Range Interpretation Comments Neutrophils # (Auto) (test code = 751-8) 3.5 2.1-6.9 [facility] CenterLymphocytes # (Auto)2019-05-21 06:50:00* Test Item Value Reference Range Interpretation Comments Lymphocytes # (Auto) (test code = 47920-6) 2.3 1.0-3.2 [facility] CenterMonocytes # (Auto)2019-05-21 06:50:00* Test Item Value Reference Range Interpretation Comments Monocytes # (Auto) (test code = 742-7) 0.7 0.2-0.8 [facility] CenterEosinophils # (Auto)2019-05-21 06:50:00* Test Item Value Reference Range Interpretation Comments Eosinophils # (Auto) (test code = 711-2) 0.4 0.0-0.4 [facility] CenterBasophils # (Auto)2019-05-21 06:50:00* Test Item Value Reference Range Interpretation Comments Basophils # (Auto) (test code = 704-7) 0.0 0.0-0.1 [facility] CenterAbsolute Immature Granulocyte (auto 2019-05-21 06:50:00* Test Item Value Reference Range Interpretation Comments Absolute Immature Granulocyte (auto (tyesha t code = Absolute Immature Granulocyte (auto) 0.02 0-0.1 [facility] CenterWhite Blood Kwzsz4411-65-96 06:50:00* Test Item Value Reference Range Interpretation Comments White Blood Count (test code = 6690-2) 6.93 4.8-10.8 [facility] CenterRed Blood Bwwvv4695-77-69 06:50:00* Test Item Value Reference Range Interpretation Comments Red Blood Count (test code = 789-8) 4.08 4.3-5.[address] [facility] CenterHemoglobin2020-02-26 06:50:00* Test Item Value Reference Range Interpretation Comments Hemoglobin (test code = 96279-7) 13.1 14.0-18.[address] [facility] CenterHematocrit2020-02-26 06:50:00* Test Item Value Reference Range Interpretation Comments Hematocrit (test code = 4544-3) 38.1 38.2-49.[address] [facility] CenterMean Corpuscular Alokuh1452-94-53 06:50:00* Test Item Value Reference Range Interpretation Comments Mean Corpuscular Volume (test code = 787-2) 93.4 81-99 [facility] CenterMean Corpuscular Vjcphsfwjp9829-62-32 06:50:00* Test Item Value Reference Range Interpretation Comments Mean Corpuscular Hemoglobin (test code = 785-6) 32.1 28-[address] [facility] CenterMean Corpuscular Hemoglobin Concent 2019-05-21 06:50:00* Test Item Value Reference Range Interpretation Comments Mean Corpuscular Hemoglobin Concent (test code = 786-4) 34.4 31-35 [facility] CenterRed Cell Distribution Sxnoo5149-52-54 06:50:00* Test Item Value Reference Range Interpretation Comments Red Cell Distribution Width (test code = 67323-1) 12.2 11.7 -14.4 [facility] CenterPlatelet Mjgre2928-99-20 06:50:00* Test Item Value Reference Range Interpretation Comments Platelet Count (test code = 777-3) 120 140-[address] [facility] CenterNeutrophils (%) (Auto)2019-05-21 06:50:00 * Test Item Value Reference Range Interpretation Comments Neutrophils (%) (Auto) (test code = 41460-2) 51.0 38.7-80.0 [facility] CenterLymphocytes (%) (Auto)2019-05-21 06:50:00 * Test Item Value Reference Range Interpretation Comments Lymphocytes (%) (Auto) (test code = 736-9) 33.8 18.0-39.1 [facility] CenterMonocytes (%) (Auto)2019-05-21 06:50:00* Test Item Value Reference Range Interpretation Comments Monocytes (%) (Auto) (test code = 5905-5) 9.4 4.4-11.3 [facility] CenterEosinophils (%) (Auto)2019-05-21 06:50:00 * Test Item Value Reference Range Interpretation Comments Eosinophils (%) (Auto) (test code = 713-8) 5.2 0.0-6.0 [facility] CenterBasophils (%) (Auto)2019-05-21 06:50:00* Test Item Value Reference Range Interpretation Comments Basophils (%) (Auto) (test code = 706-2) 0.3 0.0-1.0 [facility] CenterIM GRANULOCYTES %2019-05-21 06:50:00* Test Item Value Reference Range Interpretation Comments IM GRANULOCYTES % (test code = IM GRANULOCYTES %) 0.3 0.0- 1.0 [facility] CenterNeutrophils # (Auto)2019-05-21 06:50:00* Test Item Value Reference Range Interpretation Comments Neutrophils # (Auto) (test code = 751-8) 3.5 2.1-6.9 [facility] CenterLymphocytes # (Auto)2019-05-21 06:50:00* Test Item Value Reference Range Interpretation Comments Lymphocytes # (Auto) (test code = 16021-1) 2.3 1.0-3.2 [facility] CenterMonocytes # (Auto)2019-05-21 06:50:00* Test Item Value Reference Range Interpretation Comments Monocytes # (Auto) (test code = 742-7) 0.7 0.2-0.8 [facility] CenterEosinophils # (Auto)2019-05-21 06:50:00* Test Item Value Reference Range Interpretation Comments Eosinophils # (Auto) (test code = 711-2) 0.4 0.0-0.4 [facility] CenterBasophils # (Auto)2019-05-21 06:50:00* Test Item Value Reference Range Interpretation Comments Basophils # (Auto) (test code = 704-7) 0.0 0.0-0.1 [facility] CenterAbsolute Immature Granulocyte (auto 2019-05-21 06:50:00* Test Item Value Reference Range Interpretation Comments Absolute Immature Granulocyte (auto (tyehsa t code = Absolute Immature Granulocyte (auto) 0.02 0-0.1 [facility]ennialodium Lrrvz9251-57-09 06:40:00* Test Item Value Reference Range Interpretation Comments Sodium Level (test code = 2951-2) 138 136-145 [facility] CenterPotassium Saouj2450-65-81 06:40:00* Test Item Value Reference Range Interpretation Comments Potassium Level (test code = 2823-3) 4.1 3.5-5.1 [facility] CenterChloride Axnhz7587-14-13 06:40:00* Test Item Value Reference Range Interpretation Comments Chloride Level (test code = 2075-0) 104 98-107 [facility] CenterCarbon Dioxide Bxmmf6964-74-24 06:40:00* Test Item Value Reference Range Interpretation Comments Carbon Dioxide Level (test code = 2028-9) 28 22-29 [facility] CenterAnion Mdd0051-58-14 06:40:00* Test Item Value Reference Range Interpretation Comments Anion Gap (test code = 60381-6) 10.1 8-16 [facility] CenterBlood Urea Wcawloyr0581-78-69 06:40:00* Test Item Value Reference Range Interpretation Comments Blood Urea Nitrogen (test code = 3094-0) 19 7-26 [facility] CenterCreatinine2020-02-26 06:40:00* Test Item Value Reference Range Interpretation Comments Creatinine (test code = 2160-0) 0.82 0.72-1.25 [facility] CenterBUN/Creatinine Qysya5749-20-82 06:40:00* Test Item Value Reference Range Interpretation Comments BUN/Creatinine Ratio (test code = 3097-3) 23 6-25 [facility] CenterEstimat Glomerular Filtration Rate 2019-05-21 06:40:00* Test Item Value Reference Range Interpretation Comments Estimat Glomerular Filtration Rate (test code = 181673384) > 60 >60 Ranges were taken from the National Kidney Disease Education Program and the [facility] literature.Reference ranges:60 or greater: Mvumuj40-63 ( for 3 consecutive months): Chronic kidney disease 15 or less: Kidney failureSt. David's Medical CenterGlucose Xrlld5322-46-55 06:40:00* Test Item Value Reference Range Interpretation Comments Glucose Level (test code = SGH1885) 94 74-118 [facility] CenterCalcium Jolpz5222-90-18 06:40:00* Test Item Value Reference Range Interpretation Comments Calcium Level (test code = 79153-8) 8.9 8.4-10.2 [facility] Centennialodium Jjwqu5069-67-73 06:40:00* Test Item Value Reference Range Interpretation Comments Sodium Level (test code = 2951-2) 138 136-145 [facility] CenterPotassium Nhvez6271-61-64 06:40:00* Test Item Value Reference Range Interpretation Comments Potassium Level (test code = 2823-3) 4.1 3.5-5.1 [facility] CenterChloride Ussfa7134-99-75 06:40:00* Test Item Value Reference Range Interpretation Comments Chloride Level (test code = 2075-0) 104 98-107 [facility] CenterCarbon Dioxide Khxlz0714-40-50 06:40:00* Test Item Value Reference Range Interpretation Comments Carbon Dioxide Level (test code = 2028-9) 28 22-29 [facility] CenterAnion Kzu7497-57-73 06:40:00* Test Item Value Reference Range Interpretation Comments Anion Gap (test code = 20467-3) 10.1 8-16 [facility] CenterBlood Urea Mwyvumlm1525-71-67 06:40:00* Test Item Value Reference Range Interpretation Comments Blood Urea Nitrogen (test code = 3094-0) 19 7-26 [facility] CenterCreatinine2020-02-26 06:40:00* Test Item Value Reference Range Interpretation Comments Creatinine (test code = 2160-0) 0.82 0.72-1.25 [facility] CenterBUN/Creatinine Hscey0304-58-76 06:40:00* Test Item Value Reference Range Interpretation Comments BUN/Creatinine Ratio (test code = 3097-3) 23 6-25 [facility] Medical CenterEstimat Glomerular Filtration Rate 2019-05-21 06:40:00* Test Item Value Reference Range Interpretation Comments Estimat Glomerular Filtration Rate (test code = 518229110) > 60 >60 Ranges were taken from the National Kidney Disease Education Program and the [facility] literature.Reference ranges:60 or greater: Vynzbs05-30 ( for 3 consecutive months): Chronic kidney disease 15 or less: Kidney failureSt. David's Medical CenterGlucose Bngsc8658-56-49 06:40:00* Test Item Value Reference Range Interpretation Comments Glucose Level (test code = SJH2688) 94 74-118 [facility] CenterCalcium Bbnaw7619-06-52 06:40:00* Test Item Value Reference Range Interpretation Comments Calcium Level (test code = 53545-1) 8.9 8.4-10.2 [facility] CenterBlood Vnmrcxh0799-30-85 20:32:00* Test Item Value Reference Range Interpretation Comments Blood Culture (test code = 30922271) NO GROWTH AFTER [address] [facility] Medical CenterPlatelet Morphology Ktnoqnn4195-95-86 08:04:00* Test Item Value Reference Range Interpretation Comments Platelet Morphology Comment (test code = 97835-8) NO EDTA PLT CLUMP S SEEN [facility] Medical CenterPlatelet Morphology Krsuisz6321-22-80 08:04:00* Test Item Value Reference Range Interpretation Comments Platelet Morphology Comment (test code = 11987-5) NO EDTA PLT CLUMP S SEEN [facility] Medical CenterTotal Xrbjlsfcd0420-80-64 06:27:00* Test Item Value Reference Range Interpretation Comments Total Bilirubin (test code = 1975-2) 0.4 0.2-1.2 [facility] Medical CenterAspartate Amino Transf (AST/SGOT) 2019-05-20 06:27:00* Test Item Value Reference Range Interpretation Comments Aspartate Amino Transf (AST/SGOT) (test code = Aspartate Amino Transf (AST/SGOT)) 18 5-34 [facility] CenterAlanine Aminotransferase (ALT/SGPT) 2019-05-20 06:27:00* Test Item Value Reference Range Interpretation Comments Alanine Aminotransferase (ALT/SGPT) (test code = 1742-6) 15 0-55 [facility] CenterTotal Ztfjcgh8497-55-66 06:27:00* Test Item Value Reference Range Interpretation Comments Total Protein (test code = 2885-2) 6.3 6.5-8.[address] [facility] CenterAlbumin2020-02-25 06:27:00* Test Item Value Reference Range Interpretation Comments Albumin (test code = 1751-7) 3.6 3.5-5.0 [facility] CenterGlobulin2020-02-25 06:27:00* Test Item Value Reference Range Interpretation Comments Globulin (test code = 90613-5) 2.7 2.3-3.5 [facility] CenterAlbumin/Globulin Dghzk3789-70-20 06:27:00 * Test Item Value Reference Range Interpretation Comments Albumin/Globulin Ratio (test code = 1759-0) 1.3 0.8-2.0 [facility] CenterAlkaline Ishxamlxunf6256-36-13 06:27:00* Test Item Value Reference Range Interpretation Comments Alkaline Phosphatase (test code = 6768-6) 70 40-150 [facility] CenterTriglycerides Hvesk7060-33-51 06:27:00* Test Item Value Reference Range Interpretation Comments Triglycerides Level (test code = 2571-8) 64 0-149 [facility] CenterCholesterol Yqoex6205-38-95 06:27:00* Test Item Value Reference Range Interpretation Comments Cholesterol Level (test code = 2093-3) 163 0-199 Less than 200 mg/dL Low Bmbq214 - 239 mg/dL Borderline Crcv107 m g/dl and greater High Risk [facility] CenterLDL Ooktwftlexs6308-74-39 06:27:00* Test Item Value Reference Range Interpretation Comments LDL Cholesterol (test code = 2089-1) 108 60-130 [facility] CenterHDL Stacfaspxjo2007-11-70 06:27:00* Test Item Value Reference Range Interpretation Comments HDL Cholesterol (test code = 2085-9) 42 40-60 [facility] CenterCholesterol/HDL Wuyhu7083-10-93 06:27:00 * Test Item Value Reference Range Interpretation Comments Cholesterol/HDL Ratio (test code = 9830-1) 3.9 3.9-4.7 [facility] CenterTotal Cswtjzkah9652-19-96 06:27:00* Test Item Value Reference Range Interpretation Comments Total Bilirubin (test code = 1975-2) 0.4 0.2-1.2 [facility] CenterAspartate Amino Transf (AST/SGOT) 2019-05-20 06:27:00* Test Item Value Reference Range Interpretation Comments Aspartate Amino Transf (AST/SGOT) (test code = Aspartate Amino Transf (AST/SGOT)) 18 5-34 [facility] CenterAlanine Aminotransferase (ALT/SGPT) 2019-05-20 06:27:00* Test Item Value Reference Range Interpretation Comments Alanine Aminotransferase (ALT/SGPT) (test code = 1742-6) 15 0-55 [facility]Total Ktestxj0371-96-02 06:27:00* Test Item Value Reference Range Interpretation Comments Total Protein (test code = 2885-2) 6.3 6.5-8.[address] [facility] CenterAlbumin2020-02-25 06:27:00* Test Item Value Reference Range Interpretation Comments Albumin (test code = 1751-7) 3.6 3.5-5.0 [facility] CenterGlobulin2020-02-25 06:27:00* Test Item Value Reference Range Interpretation Comments Globulin (test code = 03209-6) 2.7 2.3-3.5 [facility] CenterAlbumin/Globulin Aoidd9920-80-55 06:27:00 * Test Item Value Reference Range Interpretation Comments Albumin/Globulin Ratio (test code = 1759-0) 1.3 0.8-2.0 [facility] CenterAlkaline Zykyggimdbq3668-19-94 06:27:00* Test Item Value Reference Range Interpretation Comments Alkaline Phosphatase (test code = 6768-6) 70 40-150 [facility] CenterTriglycerides Miahm1732-67-36 06:27:00* Test Item Value Reference Range Interpretation Comments Triglycerides Level (test code = 2571-8) 64 0-149 [facility] CenterCholesterol Neztr1626-32-60 06:27:00* Test Item Value Reference Range Interpretation Comments Cholesterol Level (test code = 2093-3) 163 0-199 Less than 200 mg/dL Low Nuta317 - 239 mg/dL Borderline Euul751 m g/dl and greater High Risk [facility] CenterLDL Qejpxhrdnzi1136-02-22 06:27:00* Test Item Value Reference Range Interpretation Comments LDL Cholesterol (test code = 2089-1) 108 60-130 [facility] CenterHDL Zgzgzgxkiba9081-53-12 06:27:00* Test Item Value Reference Range Interpretation Comments HDL Cholesterol (test code = 2085-9) 42 40-60 [facility] CenterCholesterol/HDL Elhdx3995-73-98 06:27:00 * Test Item Value Reference Range Interpretation Comments Cholesterol/HDL Ratio (test code = 9830-1) 3.9 3.9-4.7 [facility] CenterCreatine Kinase VQ2714-28-01 06:10:00* Test Item Value Reference Range Interpretation Comments Creatine Kinase MB (test code = 56667-9) 1.60 0-5.0 [facility] CenterTroponin Z0476-72-69 06:10:00* Test Item Value Reference Range Interpretation Comments Troponin I (test code = AFT1068) < 0.001 0-0.300 [facility] CenterCreatine Kinase BH4700-69-50 06:10:00* Test Item Value Reference Range Interpretation Comments Creatine Kinase MB (test code = 81388-1) 1.60 0-5.0 [facility] CenterTropon W8151-11-27 06:10:00* Test Item Value Reference Range Interpretation Comments Troponin I (test code = 62228-4) < 0.001 0-0.300 [facility] CenterCreatine Wfjrrk5900-01-65 06:06:00* Test Item Value Reference Range Interpretation Comments Creatine Kinase (test code = 2157-6) 35 30-200 [facility] CenterCreatine Knbpzd4649-43-14 06:06:00* Test Item Value Reference Range Interpretation Comments Creatine Kinase (test code = 2157-6) 35 30-200 [facility] FFYTD8868[facility]-97 18:55:00 [facility] [address] [address] Patient Name: FANNY VALDEZ SR MR #: [id number] : 1950 Age/Sex: 68/M Req #: [id number] Adm Physician: LES HOPE MD Ordered by: MELONIE ONOFRE MD Report #: [id number] Location: [facility] Room/Bed: [place] [address] Procedure: [id number] C T/CTA CHEST Exam Date: 05/19/19 Exam Time: 1730 REPORT STATUS: Signed EXAMINATION: C TA scan of the chest with and without contrast. TECHNIQUE: Spiral CT image s of the chest were performed from the lung apices to the level of the adrenal glands before and after the intravenous administration of cc of Omnipaque 300. Coronal and sagittal reformatted images were obtained. COMPARISON: None. CLINICAL HISTORY:Chest pain DISCUSSION: Evaluation of the proxi mal aorta is limited by motion artifact as this is not a gated study AORT A AND PROXIMAL BRANCHES: The thoracic aorta shows no evidence of aneurysm or dissection. There is no evidence of intramural or periaortic hematoma. Mod erate soft and calcified atherosclerotic plaque is noted predominantly in the descending aorta and to a lesser degree at the aortic arch. Two penetrating ul cers are noted in the descending aorta (series 5, images 93 and 98). There i s preservation of the sinotubular junction. Common origin of the innominate an d left common carotid. The innominate, proximal subclavian, and common carotid arteries are normal in size. The visualized abdominal aorta is normal in si ze, with atherosclerotic calcified and soft plaque. Measurements of the aorta obtained orthogonal to the longitudinal axis on reconstruction views are as follows: 3.5 cm at the sino-tubular junction, 3.4 cm in the mid as cending aorta, 2.4 cm in the mid aortic arch, 2.6 cm in the proximal desc ending aorta, 2.4 cm in the mid descending aorta, 2.5 cm at the level of t he diaphragmatic hiatus, 2.1 cm at the level of the celiac trunk, LI SRAVANTHI/TUBES: None. LUNGS AND AIRWAYS: Marked bilateral centrilobular emphys ematous changes. Focal groundglass opacities which coalesce into a focal conso lidation with air bronchogram in the lateral right middle lobe (series 4, imag e 40). No other opacities or consolidation. No pulmonary nodules or masses. The airways are clear, without endobronchial lesions. PLEURA: No pneumo thorax or pleural effusions. HEART AND MEDIASTINUM: The thyroid gland is normal. Heart size is normal. No pericardial effusion. Atherosclerotic calci fication of the coronary arteries. LYMPH NODES: There is no mediastinal, hi lar or axillary lymphadenopathy. ABDOMEN: Limited views of the contrast-en hanced upper abdomen show no abnormality within the visualized liver, pancrea s, or kidneys. Mild splenomegaly, measuring 13.6 cm in AP diameter. The adrena l glands are normal. BONES AND SOFT TISSUES: No aggressive lytic lesions. S oft tissues are grossly unremarkable. IMPRESSION: 1. No evidence of an eurysmal dilation or dissection. No intramural or periaortic hematoma. 2. Tw o penetrating ulcers are noted in the descending aorta, without evidence of co ntrast extravasation. 3. Focal consolidation with air bronchograms in the late ral right middle lobe, which may represent pneumonia in the appropriate clinic al setting and less likely aspiration. 4. Marked bilateral centrilobular emp hysematous changes. Signed by: Dr. Moreno Sotomayor M.D. on 05/19/2019 7:10 PM Dictated By: MORENO SOTOMAYOR MD 09 Transcribed By: NELLY on 05/19/191909 COPY TO: MELONIE ONOFRE MD B-Type Natriuretic Rogsxmh2180-39-63 17:41:00* Test Item Value Reference Range Interpretation Comments B-Type Natriuretic Peptide (test code = 15077-2) 47.2 0-100 [facility] Hfnnasi1241-10-78 17:41:00* Test Item Value Reference Range Interpretation Comments B-Type Natriuretic Peptide (test code = 61022-6) 47.2 0-100 [facility]CHE[facility]LE ([facility])2019-05-19 17:21:00 [facility] [address] [address] Patient Name: FANNY VALDEZ SR MR #: [id number] : 1950 Age/Sex: 68/M Req #: [id number] Adm Physician: Ordered by: MELONIE ONOFRE MD Report #: [id number] Location: ER Room/Bed: Procedure: [id number] D X/CHEST SINGLE (PORTABLE) Exam Date: 05/19/19 Exam T natalia: 1642 REPORT STATUS: Signed EXAMINATION: CHEST SINGLE (PORTABLE) INDICATION: Chest pain UNA RISON: Chest CT 09/25/2018 FINDINGS: LINES/TUBES:None LUNGS:Th e lungs are hyperinflated. Bilateral upper lobe predominant emphysematous mehta ges. Interstitial opacities at the right lower lung zone. PLEURA:No pleural effusion or pneumothorax. MEDIASTINUM:The cardiomediastinal silhouette lincoln ears normal in size and shape. Atherosclerotic calcifications of the thoracic aorta. BONES/SOFT TISSUES:No acute osseous injury. ABDOMEN:No free air under the diaphragm. IMPRESSION: Hyperinflated lungs and severe emph ysematous changes. Interstitial right lower lung opacities, likely related to chronic lung disease. Signed by: Alicia Lay MD on 05/19/2019 5:23 PM Dictated By: ALICIA LAY MD 22 COPY TO: BLAS ONOFRE MD Prothrombin Qfqh3224-51-00 17:01:00* Test Item Value Reference Range Interpretation Comments Prothrombin Time (test code = 5902-2) 13.2 11.9-14.5 [facility] CenterProthromb Time International Ratio 2019-05-19 17:01:00* Test Item Value Reference Range Interpretation Comments Prothromb Time International Ratio (test code = 6301-6) 0.95 Oral Anticoagulant Therapy INR Values:1. Low Intensity Therapy 1.5 - 2.02 . Moderate Intensity Therapy 2.0 - 3.03. High Intensity Therapy(1) 2.5 - 3. 54. High Intensity Therapy(2) 3.0 - 4.05. Panic Value INR > 5.0 [facility] CenterActivated Partial Thromboplast Time 2019-05-19 17:01:00* Test Item Value Reference Range Interpretation Comments Activated Partial Thromboplast Time (test code = 60647-6) 35.4 23.8-35.5 [facility] CenterMagnesium Dwocq5672-61-14 17:01:00* Test Item Value Reference Range Interpretation Comments Magnesium Level (test code = 04519-9) 2.0 1.3-2.1 [facility] CenterProthrombin Zjbm2300-10-66 17:01:00* Test Item Value Reference Range Interpretation Comments Prothrombin Time (test code = 5902-2) 13.2 11.9-14.5 [facility] CenterProthromb Time International Ratio 2019-05-19 17:01:00* Test Item Value Reference Range Interpretation Comments Prothromb Time International Ratio (test code = 6301-6) 0.95 Oral Anticoagulant Therapy INR Values:1. Low Intensity Therapy 1.5 - 2.02 . Moderate Intensity Therapy 2.0 - 3.03. High Intensity Therapy(1) 2.5 - 3. 54. High Intensity Therapy(2) 3.0 - 4.05. Panic Value INR > 5.0 [facility] CenterActivated Partial Thromboplast Time 2019-05-19 17:01:00* Test Item Value Reference Range Interpretation Comments Activated Partial Thromboplast Time (test code = 45954-7) 35.4 23.8-35.5 [facility] CenterMagnesium Aisnd4718-10-72 17:01:00* Test Item Value Reference Range Interpretation Comments Magnesium Level (test code = 45824-2) 2.0 1.3-2.1 [facility] CenterCT CHEST [id number] 15:34:00 [facility] [address] [address] Patient Name: FANNY VALDEZ SR MR #: [id number] : 1950 Age/Sex: 67/M Req #: [id number] Adm Physician: Ordered by: RAHEEL SHETTY MD Report #: [id number] Location: CT Room/Bed: Procedure: [id number] CT/CT CHEST WO Exam Date: 09/25/18 Exam Time: 1420 REPORT STATUS: Signed PROCEDURE: CT CHEST WITHOUT CONTRAST CT scan of the chest WITHOUT intravenous contrast, using standard protocol. TECHNIQUE: The chest was scanned utilizing a multidetector helical scanner from the apex to the level of the adrenal glan ds. No IV contrast was administered because of referring physician request. Coronal and sagittal multiplanar reformations were obtained. COMPARISON : CT chest 11/21/2017. INDICATIONS: SOB, PNEUMONIA, BRO FINDING S: Lines/tubes: None. Lungs and Airways: Advanced emphysematous changes with right greater than left apical pleural-parenchymal scar, not significan tly changed compared to prior. Coarse reticular opacities compatible with additional scar in the right middle lobe, with new superimposed groundglass o pacities. Patchy groundglass opacity in the dependent left lower lobe. Otherw ise no new consolidations or suspicious nodules. 6-7 mm nodule in the was not evident on the prior study. Unchanged nodularity and scarring along the right major fissure. Pleura: The pleural spaces are clear. Heart and med iastinum: Visualized portions of the thyroid gland appear normal. Atheroscler otic calcification of the thoracic aorta, great vessel origins, and jena co ronary arteries. No ectasia or aneurysmal dilatation of the thoracic aorta. P ulmonary outflow tract is of normal caliber. No axillary, hilar, or mediastin al lymphadenopathy. No pericardial effusion. Soft tissues: No focal sof t tissue abnormalities. Multiple foci of streak artifact presumably related t o surgical material at the gastroesophageal junction. Abdomen: Visualiz ed portions of the liver, adrenals, and pancreas are unremarkable. Calcified splenic granulomata. Bones: No osseous destructive lesions. Degenerative c hanges of the shoulder girdles. IMPRESSION: Patchy ground less o pacities in the right middle lobe and left lower lobe concerning for multifoc al infection. New 6-7 mm right upper lobe pulmonary nodule is likely infec tious or inflammatory. Followup CT scan of the chest in one year may be obtai danyell to assess for stability per P[employer]i society 2017 guidelines. Adva nced background emphysematous changes with biapical fibrocalcific change, rig ht greater than left. Dictated by: Adrianne Barahona M.D. on 09/25/2018 at 15:3 4 Electronically approved by: Adrianne Barahona M.D. on 09/25/2018 at 15:34 Dictated By: ADRIANNE BARAHONA MD 1534 Transcribed By: HUANG on 09/25/18 1534 COPY TO: RAHEEL SHETTY MD, ABI CT CHEST [id number] 15:46:00 [address] [address] Patient Name: FANNY VALDEZ MR #: [id number] : 1950 Age/Sex: 66/M Req #: [id number] Adm Physician: Ordered by: RAHEEL SHETTY MD Report #: [id number] Location: CT Room/Bed: Procedure: [id number] CT/CT CHEST WO Exam Date: Exam Time: 1345 REPORT STATUS: Signed PROCEDURE: CT CHEST WITHOUT CONTRAST CT scan of the chest WITHOUT intravenous contrast, using standard protocol. TECHNIQUE: The chest was scanned utilizing a multidetector helical scanner from the apex to the level of the a drenal glands. No IV contrast was administered. Coronal and sagittal multipl jermaine reformations were obtained. COMPARISON: 04/23/2015 INDICATION S: SHORTNESS OF BREATH. PAIN ON INSPIRATION. COPD FINDINGS: Lines/ tubes: None. Lungs and Airways: Severe centrilobular emphysema, unchanged . Subpleural scarring in the right upper lobe, unchanged. There are persis tent scarlike opacities in the right middle lobe. The previously described centrilobular nodules and groundglass opacity in the right middle and lower lobes have significantly improved. These were likely infectious. The pr eviously described ground glass opacities in the left upper lobe have also si gnificantly improved. These were also likely infectious. No new consolidat ion or masses. Pleura: The pleural spaces are clear. Heart and media stinum: The thyroid gland is normal. No significant mediastinal, hilar or ax illary lymphadenopathy is seen. The heart and pericardium are within normal l imits. There are atherosclerotic calcifications of the thoracic aorta and cor onary arteries. Metallic artifacts around the distal esophagus and GE junc tion are presumably postsurgical. Soft tissues: Normal. Abdomen: Limited views of the upper abdomen. Metallic surgical clips in the left hepat ic lobe and around the stomach. There are atherosclerotic calcifications of t he aorta and its branches. There is a partially visualized subcentimeter hypo density in the right kidney. This is incompletely evaluated. Bones: Mil d multilevel degenerative changes of the thoracic spine. Cervical fusion hard zhong is partially visualized. IMPRESSION: Severe emphysema with mul tifocal scarring in both lungs. Scattered groundglass and nodular opacitie s described on prior examination (04/23/2015) have significantly improved and were likely infectious. No new focal consolidation or masses. Dictated by: Rodolfo Acosta M.D. on 11/21/2017 at 15:46 Electronically approved by: Rodolfo Acosta M.D. on 11/21/2017 at 15:46 Dicta amy By: RODOLFO ACOSTA MD 1546 COPY TO: SANTANA SHETTY MD, [facility] CHEST 2 VIEWS [address] [address] Patient Name: FANNY VALDEZ MR #: [id number] : 1950 Age/Sex: 66/M Req #: [id number] Adm Physician: Ordered by: FRANCISCA CALDERON MD Report #: [id number] Location: [facility] Room/Bed: Procedure: [id number] DX/CHEST 2 VIEWS Exam Date: 08/03/17 Exam Time: 1145 REPORT STATUS: Signed PROCEDURE: Frontal and lateral views of the chest. COMPARISON: [facility], DX, CHEST 2 VIEWS, 03/29/2015, 12:58. INDICATIONS: ACUTE BRONCHITIS FINDINGS: Lines/tubes: None. Lungs: Stable h yperinflated lungs and linear scarring in the superolateral right upper lung. No consolidation or pulmonary edema. Pleura: There is no pleural effus ion or pneumothorax. Heart and mediastinum: The heart and the mediastinum are normal. Atherosclerotic calcification of the thoracic aorta. Bones: No acute bony abnormality. IMPRESSION: 1. Stable COPD and postop erative changes of prior wedge resection, without acute cardiopulmonary disea se. Moreno Sotomayor M.D. Dictated by: Moreno Sotomayor M.D. on 08/03/2017 at 13:50 Electronically approved by: Mitchel Barrera on 08/03/2017 at 13:50 Dictated By: MORENO SOTOMAYOR MD Electr onically Signed By: MORENO SOTOMAYOR MD on 08/03/17 1350 Transcribed By: HUANG on 08/03/17 1350 COPY TO: FRANCISCA CALDERON MD
[2019-08-22 23:31] LABS: BASOPHILS % 0.4 % (0.0-1.0); EOSINOPHILS # (AUTO) 0.1 (0.0-0.4); EOSINOPHILS % 1.1 % (0.0-6.0); HEMATOCRIT 40.1 % (38.2-49.6); HEMOGLOBIN 13.4 g/dL (14.0-18.0); LYMPHOCYTES # (AUTO) 0.8 (1.0-3.2); MEAN CORPUSCULAR HEMOGLOBIN 31.2 pg (28-32); MEAN CORPUSCULAR HGB CONC 33.4 g/dL (31-35); MEAN CORPUSCULAR VOLUME 93.3 fL (81-99); MONOCYTES # (AUTO) 0.4 (0.2-0.8); MONOCYTES % 7.4 % (4.4-11.3); NEUTROPHILS # (AUTO) 4.4 (2.1-6.9); NEUTROPHILS % 76.9 % (38.7-80.0); PLATELET COUNT 137 x10e3/uL (140-360); RED CELL DISTRIBUTION WIDTH 12.1 % (11.7-14.4)
--- NOTE | 2019-08-22 23:53 | Diagnostic Imaging Report ---
Exam: Head CT without contrast History: Head CT 11/25/2015. Comparison studies: None Technique: Axial images were obtained from the skull base to the vertex. Coronal and sagittal images reconstructed from the axial data. Dose modulation, iterative reconstruction, and/or weight based adjustment of the mA/kV was utilized to reduce the radiation dose to as low as reasonably achievable. Radiation dose: Total DLP: 921.4 mGy*cm. Estimated effective dose: DLP x 0.015 Intravenous contrast: None Findings: Scalp: No abnormalities. Bones: No fractures, blastic or lytic lesions. Brain sulci: Appropriate for age. Ventricles: Mild compensatory dilatation. No hydrocephalus. Extra-axial spaces: No masses, no fluid collection. Parenchyma: No mass, acute hemorrhage or acute cortical insults. Ill-defined and confluent hypodensities in the supratentorial white matter are nonspecific but are most compatible with chronic microvascular ischemic changes. Sellar/suprasellar region: No abnormalities. Craniocervical junction: Patent foramen magnum. No Chiari one malformation. 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 IMPRESSION: 1. No acute intracranial abnormalities. 2. No changes from the prior head CT of 11/25/2015. 3. Moderate chronic microvascular ischemic changes. Signed by: Dr. Ted Cantu M.D. on 08/22/2019 11:50 PM
[2019-08-22 23:59] LABS: ALANINE AMINOTRANSFERASE 19 IU/L (0-55); ALBUMIN 4.2 g/dL (3.5-5.0); ALBUMIN/GLOBULIN RATIO 1.4 (0.8-2.0); ALKALINE PHOSPHATASE 78 IU/L (40-150); ANION GAP 12.3 mmol/L (8-16); BLOOD UREA NITROGEN 21 mg/dL (7-26); BUN/CREATININE RATIO 17 (6-25); CALCIUM 9.7 mg/dL (8.4-10.2); CARBON DIOXIDE 27 mmol/L (22-29); CHLORIDE 100 mmol/L (98-107); CREATINE KINASE 64 IU/L (30-200); CREATININE, SERUM 1.26 mg/dL (0.72-1.25); EST GLOMERULAR FILTRATION RATE 57 ML/MIN (60-); GLUCOSE 142 mg/dL (74-118); POTASSIUM 4.3 mmol/L (3.5-5.1); SODIUM 135 mmol/L (136-145)
--- NOTE | 2019-08-23 00:42 | Emergency Department Note ---
History of Present Illnes History of Present Illness Chief Complaint: General Medicine Complaints History of Present Illness This is a 68 year old male arrives to the ED with generalized malaise. Patient states he was working out in the sun all day and doesn't even have enough energy to walk. Historian: Patient, Family Member Arrival Mode: Car Onset (how long ago): hour(s) Severity: moderate Onset quality: sudden Duration (how long): hour(s) Timing of current episode: intermittent Progression: unchanged Chronicity: new Relieving factors: none Past Medical/Family History Physician Review I have reviewed the patient's past medical and family history. Any updates have been documented here. Past Medical History Recent Fever: No Clinical Suspicion of Infectio: No New/Unexplained Change in Ment: No Past Medical History: Hypertension, COPD, GERD Past Surgical History: Back Surgery, Colon Resection Other Surgery: Neck fusion Righ arm surgery. Social History Smoking Cessation: Never Smoker Counseling Performed: No Alcohol Use: None Any Illegal Drug Use: No TB Exposure/Symptoms: No Physically hurt or threatened: No Family History Family history of heart diseas: No Other Last Tetanus: Not up to date Any Pre-Existing Lines (PICC,: No Is patient up to date on immun: Yes Last Flu: DENIES Last Pneumovax: DENIES Review of Systems Review of Systems Constitutional: no symptoms EENTM: no symptoms Cardiovascular: no symptoms Respiratory: no symptoms Gastrointestinal: no symptoms Genitourinary: no symptoms Musculoskeletal: no symptoms Neurological: weakness Psychological: no symptoms Endocrine: no symptoms Hematological/Lymphatic: no symptoms Review of other systems All other systems reviewed and negative. Physical Exam Related Data Allergies: Coded Allergies: iodine (Verified Allergy, Mild, 11/25/15) Triage Vital Signs Vital Signs Date Time Temp Pulse Resp B/P (MAP) Pulse Ox O2 Delivery O2 Flow Rate FiO2 08/22/19 22:21 98.0 82 17 107/70 98 Vital signs reviewed: Yes Physical Exam CONSTITUTIONAL Constitutional: well-developed, well-nourished, ill appearing HENT HENT: normocephalic, atraumatic, mucosae dry, nose normal HENT L/R: left ext ear normal, right ext ear normal EYES Eyes: PERRL, conjunctivae normal NECK Neck: ROM normal PULMONARY Pulmonary: effort normal, breath sounds normal CARDIOVASCULAR Cardiovascular: regular rhythm, heart sounds normal, capillary refill normal, normal rate GASTROINTESTINAL Abdominal: soft, nontender, bowel sounds normal GENITOURINARY Genitourinary: exam deferred SKIN Skin: warm, dry MUSCULOSKELETAL Musculoskeletal: ROM normal NEUROLOGICAL Neurological: alert, oriented x 3, no gross motor or sensory deficits PSYCHOLOGICAL Psychological: mood/affect normal, judgement normal Results Laboratory Result Diagram: 08/22/19 2230 Laboratory Laboratory Tests Test 08/22/19 23:15 08/22/19 22:30 White Blood Count 5.71 x10e3/uL (4.8-10.8) Red Blood Count 4.30 x10e6/uL (4.3-5.7) Hemoglobin 13.4 g/dL (14.0-18.0) Hematocrit 40.1 % (38.2-49.6) Mean Corpuscular Volume 93.3 fL (81-99) Mean Corpuscular Hemoglobin 31.2 pg (28-32) Mean Corpuscular Hemoglobin Concent 33.4 g/dL (31-35) Red Cell Distribution Width 12.1 % (11.7-14.4) Platelet Count 137 x10e3/uL (140-360) Neutrophils (%) (Auto) 76.9 % (38.7-80.0) Lymphocytes (%) (Auto) 14.0 % (18.0-39.1) Monocytes (%) (Auto) 7.4 % (4.4-11.3) Eosinophils (%) (Auto) 1.1 % (0.0-6.0) Basophils (%) (Auto) 0.4 % (0.0-1.0) Neutrophils # (Auto) 4.4 (2.1-6.9) Lymphocytes # (Auto) 0.8 (1.0-3.2) Monocytes # (Auto) 0.4 (0.2-0.8) Eosinophils # (Auto) 0.1 (0.0-0.4) Basophils # (Auto) 0.0 (0.0-0.1) Absolute Immature Granulocyte (auto 0.01 x10e3/uL (0-0.1) Lab results reviewed: Yes Imaging Imaging results reviewed: Yes Impressions IMPRESSION: 1. No acute intracranial abnormalities. 2. No changes from the prior head CT of 11/25/2015. 3. Moderate chronic microvascular ischemic changes. Procedures 12 Lead ECG Interpretation Prior [employer] tracings: reviewed Rhythm: sinus rhythm Rate: normal QRS axis: normal ST segments normal: Yes T waves normal: Yes Clinical Impression: non-specific ECG Critical Care Time Subsequent provider I assumed direction of critical care for this patient from another provider of my specialty. Assessment & Plan Reassessment Reassessment time: 00:47 Reassessment 68 yo M arrived to the ED with complaints of generalized malaise and weakness that began while being out in the sun yesterday. On arrival to the ER patient noted to be mildly hypotensive despite not taking his blood pressure medications. Patient denied any neuro deficits and his neurological exam is normal, however, patient complained of extreme lethargy and malaise and states he does not have the NG tube even walk. No source of infection noted. Patient not tachycardic. No concerns about pulmonary embolus. Patient may be dehydrated secondary to being out in the sun without proper oral intake. Patient given fluid resuscitation and admitted for observation and further monitoring. Assessment & Plan Final Impression: (1) WEAKNESS Assessment & Plan cbc, cmp CT Brain Depart Disposition: ADMITTED Last Vital Signs Date Time Temp Pulse Resp B/P (MAP) Pulse Ox O2 Delivery O2 Flow Rate FiO2 08/22/19 22:21 98.0 82 17 107/70 98 Home Meds Active Scripts Azithromycin (ZITHROMAX) 500 Mg Tablet, 500 MG PO DAILY, #5 Prov:MANDI HOPE MD 05/21/19 Loratadine (LORATADINE) 10 Mg Tablet, 10 MG PO DAILY for 30 Days Prov:MANDI HOPE MD 05/21/19 Benzonatate (TESSALON PERLE) 100 Mg Capsule, 100 MG PO TID for 7 Days Prov:MANDI HOPE MD 05/21/19 Reported Medications Amlodipine Besylate (AMLODIPINE BESYLATE) 5 Mg Tablet, 5 MG PO DAILY, #30 TAB 11/25/15 Lisinopril (LISINOPRIL) 10 Mg Tablet, 20 MG PO BID, #30 TAB 11/25/15 Pantoprazole Sodium* (PROTONIX) 40 Mg Tablet.dr, 40 MG PO DAILY, TAB 01/07/15 Amitriptyline Hcl (AMITRIPTYLINE HCL) 50 Mg Tablet, 100 MG PO HS 05/10/12 SAMMI GARCÍA, August 23, 2019 00:42
[2019-08-23 00:51] LABS: BILIRUBIN,URINE SMALL (NEGATIVE); CLARITY,URINE CLEAR (CLEAR); COLOR,URINE AMBER (YELLOW); KETONES,URINE NEGATIVE (NEGATIVE); LEUKOCYTE ESTERASE ,URINE NEGATIVE (NEGATIVE); NITRITE,URINE NEGATIVE (NEGATIVE); PROTEIN,URINE DIPSTICK NEGATIVE (NEGATIVE); URINE UROBILINOGEN 1 mg/dL (0.2 - 1)
[2019-08-23 00:52] LABS: BACTERIA,URINE MODERATE /HPF; EPITHELIAL CELLS,URINE MODERATE /LPF; RBC,URINE 0-5 /HPF (0-5)
--- NOTE | 2019-08-23 01:16 | Diagnostic Imaging Report ---
EXAMINATION: CHEST SINGLE (PORTABLE) INDICATION: Weakness COMPARISON: Chest x-ray 07/07/2019, chest CT 05/19/2019 FINDINGS: TUBES and LINES: None. LUNGS: Greater than normal lung volumes with upper lung lucencies. PLEURA: No pleural effusion or pneumothorax. HEART AND MEDIASTINUM: The cardiomediastinal silhouette is unremarkable. Aortic calcifications. BONES AND SOFT TISSUES: No acute osseous lesion. Soft tissues are unremarkable. UPPER ABDOMEN: No free air under the diaphragm. Clips in the upper abdomen. IMPRESSION: Bibasilar haziness can be due to atelectasis or pneumonia. Pulmonary emphysema. Signed by: Trever Landaverde DO on 08/23/2019 1:12 AM
[2019-08-23] MEDS ORDERED: SODIUM CHLORIDE 0.9% 1000ML 2,000 ML ONE (03:02)
--- OUTSIDE RECORDS SUMMARY | 2019-08-23 03:11 | XMS REPORT ---
Author Author [facility] t Organization [facility] Address 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 Name Role Phone FRANCISCA CALDERON MD PCP Eloisa GARCÍA Attphys Unavailable LES HOPE Attphys Unavailable Bipin SHETTY Attphys Unavailable FRANCISCA CALDERON Attphys Unavailable LES HOPE Admkavin Unavailable Payers Payer Name Policy Type Policy Number Effective Date Expiration Date Eloisa duncan [facility] Medicare Complete [id number] [facility] [id number] [facility] Problems Condition Name Condition Details Condition Category Status Onset Date Resolution Date Last Treatment Date Treating Clinician Comments Source Pneumonia Pneumonia Problem Active 2014-09-05 00:00:00 [facility] Chest pain Chest pain Problem Active C [facility] Allergies, Adverse Reactions, Alerts Allergy Name Allergy Type Status Severity Reaction(s) Onset Date Inacti ve Date Treating Clinician Comments Source Iodine Allergy to Substance Active Mild 2015-11-25 00:00:00 [facility] iodine DA Active SV 2014-09-17 00:00:00 [facility] Medications Ordered Medication Name Filled Medication Name Start Date Stop Da te Current Medication? Ordering Clinician Indication Dosage Frequency Signature (SIG) Comments Components Source Azithromycin (Zithromax) 500 Mg Tablet Azithromycin (Zithrom ax) 500 Mg Tablet 2019-05-21 00:00:00 Yes Les Hope Md 500 Daily [facility] Benzonatate (Tessalon Perle) 100 Mg Capsule Benzonatat e (Tessalon Perle) 100 Mg Capsule 2019-05-21 00:00:00 Yes Les Hope Md 100 Three T imes A Day [facility] Loratadine 10 Mg Tablet Loratadine 10 Mg Tablet 2019-05-21 00:00:00 Yes Les Hope Md 10 Daily [facility] Amitriptyline Hcl 50 Mg Tablet Amitriptyline Hcl 50 Mg Tablet Yes 100 Bedtime [facility] Amlodipine Besylate 5 Mg Tablet Amlodipine Besylate 5 Mg Tablet Yes 5 Daily [facility] Lisinopril 10 Mg Tablet Lisinopril 10 Mg Tablet Yes 20 Twice A Day [facility] Pantoprazole Sodium (Protonix) 40 Mg Tablet. Pantopr azole Sodium (Protonix) 40 Mg Tablet. Yes 40 Daily [facility] Lisinopril 30 Mg Tablet, 30 Mg Oral Lisinopril 30 Mg Tablet, 30 Mg Oral 2015-11-25 00:00:00 No 30 Daily [facility] Prednisone 20 Mg Tab, 40 Mg Oral Prednisone 20 Mg Tab, 40 Mg Ora l 2015-11-25 00:00:00 No 40 Daily [facility] Hydrocodone Bit/Acetaminophen ([place] 7.5-325 Tablet) 1 Each Tablet, Oral Hydrocodone Bit/Acetaminophen ([place] 7.5-325 Tablet) 1 Each Tablet, Oral 2014-09-05 00:00:00 No As Needed [facility] Hydrocodone Bit/Acetaminophen ([place] 7.5-325 Tablet) 1 Each Tablet, 1 Tab Oral Hydrocodone Bit/Acetaminophen ([place] 7.5-325 Tablet) 1 Each Tablet, 1 Tab Oral 2014-09-05 00:00:00 No 1 Every 4-6 Hours as needed [facility] Ibuprofen 600 Mg Tablet, Mg Oral Ibuprofen 600 Mg Tablet, Mg O ral 2014-09-05 00:00:00 No [facility] Amitriptyline Hcl 25 Mg Tablet, 50 Mg Oral Amitriptyli ne Hcl 25 Mg Tablet, 50 Mg Oral 2012-05-10 00:00:00 No 50 Bedtime [facility] Procedures Procedure Date / Time Performed Performing Clinician [facility] e X-ray of chest, two views 2019-07-07 00:00:00 VIRI MCNEILL [facility] CT angiography of chest 2019-05-19 00:00:00 JEMIMA MELONIE Kamaljit [facility] Computed tomography of chest without contrast 2018-09-25 00: 00:00 RAHEEL SHETTY [facility] Encounters Start Date/Time End Date/Time Encounter Type Admission Type Attendi [facility] Care Department Encounter ID Source 2019-07-07 18:45:00 2019-07-07 22:45:00 Departed Emergency Room 1 RICKYSAMMI [facility] [id number] [facility] 2019-05-19 18:05:00 2019-05-21 14:25:00 Discharged Inpatient (obs) 1 LES HOPE [facility] [id number] [facility] 2018-09-25 13:54:00 2018-09-25 13:54:00 Registered Clinic 3 DIOGENES RAHEEL [facility] [id number] [facility] 2018-07-21 14:21:00 2018-07-21 14:55:00 Departed Emergency Room [facility] [id number] [facility] 2017-11-21 13:29:00 2017-11-21 13:29:00 Registered Clinic 3 RAHEEL SHETTY [facility] [id number] [facility] Results Test Description Test Time Test Comments Results Result Comments Source CHEST SINGLE (PORTABLE) 2019-08-23 01:11:00 [place] [address] Patient Name: FANNY VALDEZ SR MR #: [id number] : 1950 Age/Sex: 68/M Req #: [id number] Adm Physician: Ordered by: SAMMI GARCÍA DO Report #: [id number] Location: ER Room/Bed: Procedure: [id number] DX/CHEST SINGLE (PORTABLE) Exam Date: 08/23/19 Exam Time: 44 REPORT STATUS: Signed EXAMINATION: CHEST SINGLE (PORTABLE) INDICATION: Weakness COMPARISON: Chest x-ray 07/07/2019, chest CT 05/19/2019 FINDINGS: TUBES and LINES: None. LUNGS: Greater than normal lung volumes with upper lung lucencies. PLEURA: No pleural effusion or pneumothorax. HEART AND MEDIASTINUM: The cardiomediastinal silhouette is unremarkable. Aortic calcifications. BONES AND SOFT TISSUES: No acute osseous lesion. Soft tissues are unremarkable. UPPER ABDOMEN: No free air under the diaphragm. Clips in the upper abdomen. IMPRESSION: Bibasilar haziness can be due to atelectasis or pneumonia. Pulmonary emphysema. Signed by: Trever Reyes DO on 08/23/2019 1:12 AM Dictated By: TREVER REYES DO 1 Transcribed By: NLELY on 08/23/19111 COPY TO: SAMMI GARCÍA DO CT BRAIN WO 2019-08-22 23:45:00 [place] [address] Patient Name: FANNY VALDEZ SR MR #: [id number] : 1950 Age/Sex: 68/M Req #: [id number] Adm Physician: Ordered by: SAMMI GARCÍA DO Report #: [id number] Location: ER Room/Bed: Procedure: [id number] CT/CT BRAIN WO Exam Date: 08/22/19 Exam Time: 2330 REPORT STATUS: Signed Exam: Head CT without contrast History: Head CT 11/25/2015. Comparison studies: None Technique: Axial images were obtained from the skull base to the vertex. Coronal and sagittal images reconstructed from the axial data. Dose modulation, iterative reconstruction, and/or weight based adjustment of the mA/kV was utilized to reduce the radiation dose to as low as reasonably achievable. Radiation dose: Total DLP: 921.4 mGy*cm. Estimated effective dose: DLP x 0.015 Intravenous contrast: None Findings: Scalp: No abnormalities. Bones: No fractures, blastic or lytic lesions. Brain sulci: Appropriate for age. Ventricles: Mild compensatory dilatation. No hydrocephalus. Extra-axial spaces: No masses, no fluid collection. Parenchyma: No mass, acute hemorrhage or acute cortical insults. Ill-defined and confluent hypodensities in the supratentorial white matter are nonspecific but are most compatible with chronic microvascular ischemic changes. Sellar/suprasellar region: No abnormalities. Craniocervical junction: Patent foramen magnum. No Chiari one malformation. 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 IMPRESSION: 1. No acute intracranial abnormalities. 2. No changes from the prior head CT of 11/25/2015. 3. Moderate chronic microvascular ischemic changes. Signed by: Dr. Adrianne Rick M.D. on 08/22/2019 11:50 PM Dictated By: ADRIANNE RICK MD 23 50 Transcribed By: NELLY on 08/22/19 0436 COPY TO: SAMMI GARCÍA, CHEST 2 VIEWS 2019-07-07 21:51:[address], [place] [address] Patient Name: FANNY VALDEZ SR MR #: [id number] : 1950 Age/Sex: 68/M Req #: [id number] Adm Physician: Ordered by: VIRI MCNEILL NP Report #: [id number] Location: ER Room/Bed: Procedure: [id number] DX/CHEST 2 VIEWS Exam Date: 07/07/19 Exam [...] 10:00 PM Dictated By: TREVER REYES DO 2200 Transcribed By: NELLY on 07/07/192199 COPY TO: VIRI MCNEILL NP Stress Test - Treadmill ONLY 2019-05-29 10:38:00 [place] [address] Patient Name : FANNY VALDEZ SR MR #: [id number] : 1950 Age/Sex: 68/M Adm Physician : LSE HOPE MD Admit Date : 05/19/19 Location : MED/SURG Room/Bed : [facility] REPORT: Myoview Stress Test DATE OF STUDY: [...] abnormalities. Destiny Palacios MD ABS/ESTHER J #: [id number] Signature Date Dictated By: DESTINY PALACIOS MD Transcribed By: ESTHER on 05/29/19 <Electronically signed by DESTINY PALACIOS MD><<Signature on File>>06/24/19 0212 COPY TO: Blood Culture 2019-05-24 20:32:00 Test Item Blood Culture (test code = 25882030) NO GROWTH AFTER 5 DAYS, FINAL REPORT [facility] Blood Vylex8173-62-44 06:50:00* Test Item Value Reference Range Interpretation Comments White Blood Count (test code = 6690-2) 6.93 4.8-10.8 [facility] CenterRed Blood Vwseo9187-86-31 06:50:00* Test Item Value Reference Range Interpretation Comments Red Blood Count (test code = 789-8) 4.08 4.3-5.7 L [facility] CenterHemoglobin2020-02-26 06:50:00* Test Item Value Reference Range Interpretation Comments Hemoglobin (test code = 31914-4) 13.1 14.0-18.0 L [facility] CenterHematocrit2020-02-26 06:50:00* Test Item Value Reference Range Interpretation Comments Hematocrit (test code = 4544-3) 38.1 38.2-49.6 L [facility] CenterMean Corpuscular Roixlw4770-70-38 06:50:00* Test Item Value Reference Range Interpretation Comments Mean Corpuscular Volume (test code = 787-2) 93.4 81-99 [facility] CenterMean Corpuscular Skospxasdw2563-93-45 06:50:00* Test Item Value Reference Range Interpretation Comments Mean Corpuscular Hemoglobin (test code = 785-6) 32.1 28-32 H [facility] CenterMean Corpuscular Hemoglobin Concent 2019-05-21 06:50:00* Test Item Value Reference Range Interpretation Comments Mean Corpuscular Hemoglobin Concent (test code = 786-4) 34.4 31-35 [facility] CenterRed Cell Distribution Upynp4794-05-09 06:50:00* Test Item Value Reference Range Interpretation Comments Red Cell Distribution Width (test code = 60944-4) 12.2 11.7 -14.4 [facility] CenterPlatelet Uhofk8723-49-71 06:50:00* Test Item Value Reference Range Interpretation Comments Platelet Count (test code = 777-3) 120 140-360 L [facility] CenterNeutrophils (%) (Auto)2019-05-21 06:50:00 * Test Item Value Reference Range Interpretation Comments Neutrophils (%) (Auto) (test code = 26024-4) 51.0 38.7-80.0 [facility] CenterLymphocytes (%) (Auto)2019-05-21 06:50:00 * Test Item Value Reference Range Interpretation Comments Lymphocytes (%) (Auto) (test code = 736-9) 33.8 18.0-39.1 [facility] CenterMonocytes (%) (Auto)2019-05-21 06:50:00* Test Item Value Reference Range Interpretation Comments Monocytes (%) (Auto) (test code = 5905-5) 9.4 4.4-11.3 [facility] CenterEosinophils (%) (Auto)2019-05-21 06:50:00 * Test Item Value Reference Range Interpretation Comments Eosinophils (%) (Auto) (test code = 713-8) 5.2 0.0-6.0 [facility] CenterBasophils (%) (Auto)2019-05-21 06:50:00* Test Item Value Reference Range Interpretation Comments Basophils (%) (Auto) (test code = 706-2) 0.3 0.0-1.0 [facility] CenterIM GRANULOCYTES %2019-05-21 06:50:00* Test Item Value Reference Range Interpretation Comments IM GRANULOCYTES % (test code = IM GRANULOCYTES %) 0.3 0.0- 1.0 [facility] CenterNeutrophils # (Auto)2019-05-21 06:50:00* Test Item Value Reference Range Interpretation Comments Neutrophils # (Auto) (test code = 751-8) 3.5 2.1-6.9 [facility] CenterLymphocytes # (Auto)2019-05-21 06:50:00* Test Item Value Reference Range Interpretation Comments Lymphocytes # (Auto) (test code = 41162-4) 2.3 1.0-3.2 [facility] CenterMonocytes # (Auto)2019-05-21 06:50:00* Test Item Value Reference Range Interpretation Comments Monocytes # (Auto) (test code = 742-7) 0.7 0.2-0.8 [facility] CenterEosinophils # (Auto)2019-05-21 06:50:00* Test Item Value Reference Range Interpretation Comments Eosinophils # (Auto) (test code = 711-2) 0.4 0.0-0.4 [facility] CenterBasophils # (Auto)2019-05-21 06:50:00* Test Item Value Reference Range Interpretation Comments Basophils # (Auto) (test code = 704-7) 0.0 0.0-0.1 [facility] CenterAbsolute Immature Granulocyte (auto 2019-05-21 06:50:00* Test Item Value Reference Range Interpretation Comments Absolute Immature Granulocyte (auto (tyesha t code = Absolute Immature Granulocyte (auto) 0.02 0-0.1 [facility] CenterWhite Blood Mwnuk5007-07-30 06:50:00* Test Item Value Reference Range Interpretation Comments White Blood Count (test code = 6690-2) 6.93 4.8-10.8 [facility] CenterRed Blood Kjtdv3486-79-25 06:50:00* Test Item Value Reference Range Interpretation Comments Red Blood Count (test code = 789-8) 4.08 4.3-5.7 L [facility] CenterHemoglobin2020-02-26 06:50:00* Test Item Value Reference Range Interpretation Comments Hemoglobin (test code = 50034-5) 13.1 14.0-18.0 L [facility] CenterHematocrit2020-02-26 06:50:00* Test Item Value Reference Range Interpretation Comments Hematocrit (test code = 4544-3) 38.1 38.2-49.6 L [facility] CenterMean Corpuscular Emqizf8604-20-48 06:50:00* Test Item Value Reference Range Interpretation Comments Mean Corpuscular Volume (test code = 787-2) 93.4 81-99 [facility] CenterMean Corpuscular Yzjjfgfvlh9101-66-23 06:50:00* Test Item Value Reference Range Interpretation Comments Mean Corpuscular Hemoglobin (test code = 785-6) 32.1 28-32 H [facility] CenterMean Corpuscular Hemoglobin Concent 2019-05-21 06:50:00* Test Item Value Reference Range Interpretation Comments Mean Corpuscular Hemoglobin Concent (test code = 786-4) 34.4 31-35 [facility] CenterRed Cell Distribution Fedei7902-68-89 06:50:00* Test Item Value Reference Range Interpretation Comments Red Cell Distribution Width (test code = 71696-4) 12.2 11.7 -14.4 [facility] CenterPlatelet Bvbzr4694-28-65 06:50:00* Test Item Value Reference Range Interpretation Comments Platelet Count (test code = 777-3) 120 140-360 L [facility] CenterNeutrophils (%) (Auto)2019-05-21 06:50:00 * Test Item Value Reference Range Interpretation Comments Neutrophils (%) (Auto) (test code = 79389-5) 51.0 38.7-80.0 [facility] CenterLymphocytes (%) (Auto)2019-05-21 06:50:00 * Test Item Value Reference Range Interpretation Comments Lymphocytes (%) (Auto) (test code = 736-9) 33.8 18.0-39.1 [facility] CenterMonocytes (%) (Auto)2019-05-21 06:50:00* Test Item Value Reference Range Interpretation Comments Monocytes (%) (Auto) (test code = 5905-5) 9.4 4.4-11.3 [facility] CenterEosinophils (%) (Auto)2019-05-21 06:50:00 * Test Item Value Reference Range Interpretation Comments Eosinophils (%) (Auto) (test code = 713-8) 5.2 0.0-6.0 [facility] CenterBasophils (%) (Auto)2019-05-21 06:50:00* Test Item Value Reference Range Interpretation Comments Basophils (%) (Auto) (test code = 706-2) 0.3 0.0-1.0 [facility] CenterIM GRANULOCYTES %2019-05-21 06:50:00* Test Item Value Reference Range Interpretation Comments IM GRANULOCYTES % (test code = IM GRANULOCYTES %) 0.3 0.0- 1.0 [facility] CenterNeutrophils # (Auto)2019-05-21 06:50:00* Test Item Value Reference Range Interpretation Comments Neutrophils # (Auto) (test code = 751-8) 3.5 2.1-6.9 [facility] CenterLymphocytes # (Auto)2019-05-21 06:50:00* Test Item Value Reference Range Interpretation Comments Lymphocytes # (Auto) (test code = 47681-5) 2.3 1.0-3.2 [facility] CenterMonocytes # (Auto)2019-05-21 06:50:00* Test Item Value Reference Range Interpretation Comments Monocytes # (Auto) (test code = 742-7) 0.7 0.2-0.8 [facility] CenterEosinophils # (Auto)2019-05-21 06:50:00* Test Item Value Reference Range Interpretation Comments Eosinophils # (Auto) (test code = 711-2) 0.4 0.0-0.4 [facility] CenterBasophils # (Auto)2019-05-21 06:50:00* Test Item Value Reference Range Interpretation Comments Basophils # (Auto) (test code = 704-7) 0.0 0.0-0.1 [facility] CenterAbsolute Immature Granulocyte (auto 2019-05-21 06:50:00* Test Item Value Reference Range Interpretation Comments Absolute Immature Granulocyte (auto (tyesha t code = Absolute Immature Granulocyte (auto) 0.02 0-0.1 [facility]odium Sbmec3747-70-21 06:40:00* Test Item Value Reference Range Interpretation Comments Sodium Level (test code = 2951-2) 138 136-145 [facility] CenterPotassium Qwsml6507-16-79 06:40:00* Test Item Value Reference Range Interpretation Comments Potassium Level (test code = 2823-3) 4.1 3.5-5.1 [facility] CenterChloride Nzxeu4951-99-74 06:40:00* Test Item Value Reference Range Interpretation Comments Chloride Level (test code = 2075-0) 104 98-107 [facility] CenterCarbon Dioxide Jrxzv7238-22-24 06:40:00* Test Item Value Reference Range Interpretation Comments Carbon Dioxide Level (test code = 2028-9) 28 22-29 [facility] CenterAnion Ens3980-96-34 06:40:00* Test Item Value Reference Range Interpretation Comments Anion Gap (test code = 06729-6) 10.1 8-16 [facility] CenterBlood Urea Rfbgeqhw3414-53-66 06:40:00* Test Item Value Reference Range Interpretation Comments Blood Urea Nitrogen (test code = 3094-0) 19 7-26 [facility] CenterCreatinine2020-02-26 06:40:00* Test Item Value Reference Range Interpretation Comments Creatinine (test code = 2160-0) 0.82 0.72-1.25 [facility] CenterBUN/Creatinine Rjakb8235-68-95 06:40:00* Test Item Value Reference Range Interpretation Comments BUN/Creatinine Ratio (test code = 3097-3) 23 6-25 [facility] CenterEstimat Glomerular Filtration Rate 2019-05-21 06:40:00* Test Item Value Reference Range Interpretation Comments Estimat Glomerular Filtration Rate (test code = 415519435) > 60 >60 Ranges were taken from the National Kidney Disease Education Program and the [facility] Kid[facility] Foundation literature.Reference ranges:60 or greater: Rfxyka42-59 ( for 3 consecutive months): Chronic kidney disease 15 or less: Kidney failureSaint Camillus Medical CenterGlucose Rlouv7298-99-37 06:40:00* Test Item Value Reference Range Interpretation Comments Glucose Level (test code = STO9624) 94 74-118 [facility] CenterCalcium Pfghb6827-42-97 06:40:00* Test Item Value Reference Range Interpretation Comments Calcium Level (test code = 22535-0) 8.9 8.4-10.2 [facility] Centerodium Dphrc5022-70-38 06:40:00* Test Item Value Reference Range Interpretation Comments Sodium Level (test code = 2951-2) 138 136-145 [facility] CenterPotassium Hxfvc0156-22-68 06:40:00* Test Item Value Reference Range Interpretation Comments Potassium Level (test code = 2823-3) 4.1 3.5-5.1 [facility] CenterChloride Sufnq8150-42-30 06:40:00* Test Item Value Reference Range Interpretation Comments Chloride Level (test code = 2075-0) 104 98-107 [facility] CenterCarbon Dioxide Lahyb3746-84-80 06:40:00* Test Item Value Reference Range Interpretation Comments Carbon Dioxide Level (test code = 2028-9) 28 22-29 [facility] CenterAnion Okx7778-19-20 06:40:00* Test Item Value Reference Range Interpretation Comments Anion Gap (test code = 37163-9) 10.1 8-16 [facility] CenterBlood Urea Hrostkwo9393-76-61 06:40:00* Test Item Value Reference Range Interpretation Comments Blood Urea Nitrogen (test code = 3094-0) 19 7-26 [facility] CenterCreatinine2020-02-26 06:40:00* Test Item Value Reference Range Interpretation Comments Creatinine (test code = 2160-0) 0.82 0.72-1.25 [facility] CenterBUN/Creatinine Wopxd3811-39-75 06:40:00* Test Item Value Reference Range Interpretation Comments BUN/Creatinine Ratio (test code = 3097-3) 23 -25 [facility] CenterEstimat Glomerular Filtration Rate 2019-05-21 06:40:00* Test Item Value Reference Range Interpretation Comments Estimat Glomerular Filtration Rate (test code = 018568759) > 60 >60 Ranges were taken from the National Kidney Disease Education Program and the [facility] Kidney Foundation literature.Reference ranges:60 or greater: Uwcral21-15 ( for 3 consecutive months): Chronic kidney disease 15 or less: Kidney failureSaint Camillus Medical CenterGlucose Xgtps5659-50-10 06:40:00* Test Item Value Reference Range Interpretation Comments Glucose Level (test code = EAS3405) 94 74-118 [facility] CenterCalcium Kgfpx2154-52-90 06:40:00* Test Item Value Reference Range Interpretation Comments Calcium Level (test code = 11611-5) 8.9 8.4-10.2 [facility] CenterBlood Rxxphvx5261-37-45 20:32:00* Test Item Value Reference Range Interpretation Comments Blood Culture (test code = 41283829) NO GROWTH AFTER 24 HOURS [facility] CenterPlatelet Morphology Jqbwbon0968-81-21 08:04:00* Test Item Value Reference Range Interpretation Comments Platelet Morphology Comment (test code = 85511-2) NO EDTA PLT CLUMP S SEEN [facility] CenterPlatelet Morphology Opkswkw3961-56-18 08:04:00* Test Item Value Reference Range Interpretation Comments Platelet Morphology Comment (test code = 63042-3) NO EDTA PLT CLUMP S SEEN [facility] CenterTotal Azijmafcx5052-21-98 06:27:00* Test Item Value Reference Range Interpretation Comments Total Bilirubin (test code = 1975-2) 0.4 0.2-1.2 [facility] CenterAspartate Amino Transf (AST/SGOT) 2019-05-20 06:27:00* Test Item Value Reference Range Interpretation Comments Aspartate Amino Transf (AST/SGOT) (test code = Aspartate Amino Transf (AST/SGOT)) 18 5-34 [facility] CenterAlanine Aminotransferase (ALT/SGPT) 2019-05-20 06:27:00* Test Item Value Reference Range Interpretation Comments Alanine Aminotransferase (ALT/SGPT) (test code = 1742-6) 15 0-55 [facility] CenterTotal Ngcpdkl3478-40-97 06:27:00* Test Item Value Reference Range Interpretation Comments Total Protein (test code = 2885-2) 6.3 6.5-8.1 L [facility] CenterAlbumin2020-02-25 06:27:00* Test Item Value Reference Range Interpretation Comments Albumin (test code = 1751-7) 3.6 3.5-5.0 [facility] CenterGlobulin2020-02-25 06:27:00* Test Item Value Reference Range Interpretation Comments Globulin (test code = 69920-3) 2.7 2.3-3.5 [facility] CenterAlbumin/Globulin Rpbpe2294-94-83 06:27:00 * Test Item Value Reference Range Interpretation Comments Albumin/Globulin Ratio (test code = 1759-0) 1.3 0.8-2.0 [facility] CenterAlkaline Vkxqhxczjnw4579-55-36 06:27:00* Test Item Value Reference Range Interpretation Comments Alkaline Phosphatase (test code = 6768-6) 70 40-150 [facility] CenterTriglycerides Orxhy3368-20-82 06:27:00* Test Item Value Reference Range Interpretation Comments Triglycerides Level (test code = 2571-8) 64 0-149 [facility] CenterCholesterol Gwlik0017-38-33 06:27:00* Test Item Value Reference Range Interpretation Comments Cholesterol Level (test code = 2093-3) 163 0-199 Less than 200 mg/dL Low Cqdt875 - 239 mg/dL Borderline Ssqz150 m g/dl and greater High Risk [facility] CenterLDL Pkokoaoozxx6525-36-01 06:27:00* Test Item Value Reference Range Interpretation Comments LDL Cholesterol (test code = 2089-1) 108 60-130 [facility] CenterHDL Lwhcfpyurff7880-41-69 06:27:00* Test Item Value Reference Range Interpretation Comments HDL Cholesterol (test code = 2085-9) 42 40-60 [facility] CenterCholesterol/HDL Hhfco3523-45-12 06:27:00 * Test Item Value Reference Range Interpretation Comments Cholesterol/HDL Ratio (test code = 9830-1) 3.9 3.9-4.7 [facility] [facility] Ngxfeesyi4238-10-05 06:27:00* Test Item Value Reference Range Interpretation Comments Total Bilirubin (test code = 1975-2) 0.4 0.2-1.2 [facility] CenterAspartate Amino Transf (AST/SGOT) 2019-05-20 06:27:00* Test Item Value Reference Range Interpretation Comments Aspartate Amino Transf (AST/SGOT) (test code = Aspartate Amino Transf (AST/SGOT)) 18 5-34 [facility] CenterAlanine Aminotransferase (ALT/SGPT) 2019-05-20 06:27:00* Test Item Value Reference Range Interpretation Comments Alanine Aminotransferase (ALT/SGPT) (test code = 1742-6) 15 0-55 [facility] Xpyxkis2068-87-27 06:27:00* Test Item Value Reference Range Interpretation Comments Total Protein (test code = 2885-2) 6.3 6.5-8.1 L [facility] CenterAlbumin2020-02-25 06:27:00* Test Item Value Reference Range Interpretation Comments Albumin (test code = 1751-7) 3.6 3.5-5.0 [facility] CenterGlobulin2020-02-25 06:27:00* Test Item Value Reference Range Interpretation Comments Globulin (test code = 88062-9) 2.7 2.3-3.5 [facility]Albumin/Globulin Turbn7716-42-66 06:27:00 * Test Item Value Reference Range Interpretation Comments Albumin/Globulin Ratio (test code = 1759-0) 1.3 0.8-2.0 [facility] CenterAlkaline Qazcmitqgir2586-44-95 06:27:00* Test Item Value Reference Range Interpretation Comments Alkaline Phosphatase (test code = 6768-6) 70 40-150 [facility] CenterTriglycerides Yghzk6105-63-30 06:27:00* Test Item Value Reference Range Interpretation Comments Triglycerides Level (test code = 2571-8) 64 0-149 [facility] CenterCholesterol Fmlps0835-06-34 06:27:00* Test Item Value Reference Range Interpretation Comments Cholesterol Level (test code = 2093-3) 163 0-199 Less than 200 mg/dL Low Uqqu200 - 239 mg/dL Borderline Qiqi107 m g/dl and greater High Risk [facility] CenterLDL Bjubvyhtunf0225-83-34 06:27:00* Test Item Value Reference Range Interpretation Comments LDL Cholesterol (test code = 2089-1) 108 60-130 [facility] CenterHDL Fslvbgxfngi1957-56-10 06:27:00* Test Item Value Reference Range Interpretation Comments HDL Cholesterol (test code = 2085-9) 42 40-60 [facility] CenterCholesterol/HDL Hnsix9985-13-28 06:27:00 * Test Item Value Reference Range Interpretation Comments Cholesterol/HDL Ratio (test code = 9830-1) 3.9 3.9-4.7 [facility] CenterCreatine Kinase UI2595-46-68 06:10:00* Test Item Value Reference Range Interpretation Comments Creatine Kinase MB (test code = 65811-5) 1.60 0-5.0 [facility] CenterTroponin N2687-16-29 06:10:00* Test Item Value Reference Range Interpretation Comments Troponin I (test code = SBL4240) < 0.001 0-0.300 [facility] CenterCreatine Kinase UC1971-93-83 06:10:00* Test Item Value Reference Range Interpretation Comments Creatine Kinase MB (test code = 29535-4) 1.60 0-5.0 [facility] CenterTropon D3966-87-29 06:10:00* Test Item Value Reference Range Interpretation Comments Troponin I (test code = 91147-5) < 0.001 0-0.300 [facility] CenterCreatine Wenoxp7809-22-80 06:06:00* Test Item Value Reference Range Interpretation Comments Creatine Kinase (test code = 2157-6) 35 30-200 [facility] CenterCreatine Mgxidd0450-58-46 06:06:00* Test Item Value Reference Range Interpretation Comments Creatine Kinase (test code = 2157-6) 35 30-200 [facility] CenterCTA RKKSC9758-56-10 18:55:00 [facility] [address] [address] Patient Name: FANNY VALDEZ SR MR #: [id number] : 1950 Age/Sex: 68/M Req #: [id number] Adm Physician: LES HOPE MD Ordered by: MELONIE ONOFRE MD Report #: [id number] Location: [facility] Room/Bed: [address] [address] Procedure: [id number] C T/CTA CHEST Exam Date: 05/19/19 Exam [...] COPY TO: MELONIE ONOFRE MD B-Type Natriuretic Hipmikf9996-30-25 17:41:00* Test Item Value Reference Range Interpretation Comments B-Type Natriuretic Peptide (test code = 44356-8) 47.2 0-100 [facility] Kghwzuz5500-75-18 17:41:00* Test Item Value Reference Range Interpretation Comments B-Type Natriuretic Peptide (test code = 43919-4) 47.2 0-100 [facility]CH[facility] SINGLE (PORTABLE)2019-05-19 17:21:00 [address] [place] [address] Patient Name: FANNY VALDEZ SR MR #: [id number] : 1950 Age/Sex: 68/M Req #: [id number] Adm Physician: Ordered by: MELONIE ONOFRE MD Report #: [id number] Location: ER Room/Bed: Procedure: [id number] D X/CHEST SINGLE (PORTABLE) Exam Date: 05/19/19 [...] 22 COPY TO: BLAS ONOFRE MD Prothrombin Ibgy0031-71-29 17:01:00* Test Item Value Reference Range Interpretation Comments Prothrombin Time (test code = 5902-2) 13.2 11.9-14.5 [facility] CenterProthromb Time International Ratio 2019-05-19 17:01:00* Test Item Value Reference Range Interpretation Comments Prothromb Time International Ratio (test code = 6301-6) 0.95 Oral Anticoagulant Therapy INR Values:1. Low Intensity Therapy 1.5 - 2.02 . Moderate Intensity Therapy 2.0 - 3.03. High Intensity Therapy(1) 2.5 - 3. 54. High Intensity Therapy(2) 3.0 - 4.05. Panic Value INR > 5.0 [facility] CenterActivated Partial Thromboplast Time 2019-05-19 17:01:00* Test Item Value Reference Range Interpretation Comments Activated Partial Thromboplast Time (test code = 29525-1) 35.4 23.8-35.5 [facility] CenterMagnesium Xfhcj3368-68-56 17:01:00* Test Item Value Reference Range Interpretation Comments Magnesium Level (test code = 07179-4) 2.0 1.3-2.1 [facility] CenterProthrombin Ijsc2505-79-09 17:01:00* Test Item Value Reference Range Interpretation Comments Prothrombin Time (test code = 5902-2) 13.2 11.9-14.5 [facility] CenterProthromb Time International Ratio 2019-05-19 17:01:00* Test Item Value Reference Range Interpretation Comments Prothromb Time International Ratio (test code = 6301-6) 0.95 Oral Anticoagulant Therapy INR Values:1. Low Intensity Therapy 1.5 - 2.02 . Moderate Intensity Therapy 2.0 - 3.03. High Intensity Therapy(1) 2.5 - 3. 54. High Intensity Therapy(2) 3.0 - 4.05. Panic Value INR > 5.0 [facility] CenterActivated Partial Thromboplast Time 2019-05-19 17:01:00* Test Item Value Reference Range Interpretation Comments Activated Partial Thromboplast Time (test code = 01299-9) 35.4 23.8-35.5 [facility] CenterMagnesium Qngiv8620-15-86 17:01:00* Test Item Value Reference Range Interpretation Comments Magnesium Level (test code = 82542-6) 2.0 1.3-2.1 [facility] CenterCT CHEST [id number] 15:34:00 [address] [address] Patient Name: FANNY VALEDZ SR MR #: [id number] : 1950 Age/Sex: 67/M Req #: [id number] Adm Physician: Ordered by: RAHEEL SHETTY MD Report #: [id number] Location: CT Room/Bed: Procedure: [id number] CT/CT CHEST WO Exam Date: 09/25/18 Exam [...] the thoracic aorta, great vessel origins, and [place] ronary arteries. No ectasia or aneurysmal [...] 09/25/18 1534 COPY TO: RAHEEL SHETTY MD, [facility] CT CHEST SC2365-78-45 15:46:[address], [place] [address] Patient Name: FANNY VALDEZ MR #: [id number] : 1950 Age/Sex: 66/M Req #: [id number] [facility] Physician: Ordered by: RAHEEL SHETTY MD Report #: [id number] Location: CT Room/Bed: Procedure: [id number] CT/CT CHEST WO Exam Date: Exam Time: [...] MD 1546 COPY TO: SANTANA SHETTY MD, [facility] CHEST 2 VIEWS [place] [address] Patient Name: FANNY VALDEZ MR #: [id number] : 1950 Age/Sex: 66/M Req #: [id number] Adm Physician: Ordered by: FRANCISCA CALDERON MD Report #: [id number] Location: [facility] Room/Bed: Procedure: [id number] DX/CHEST 2 VIEWS Exam Date: 08/03/17 Exam Time: 1145 REPORT STATUS: Signed PROCEDURE: Frontal and lateral views of the chest. COMPARISON: [facility], DX, CHEST 2 VIEWS, 03/29/2015, 12:58. [...]
[2019-08-23] MEDS ORDERED: SODIUM CHLORIDE 0.9% 1000ML 1,000 ML IV STA ×2 (03:29)
--- NOTE | 2019-08-23 06:01 | NUR ---
H&P cc: dehydrated HPI: 68yoM, PCP , cardio , developed dizziness while cutting grass, pt realized that he was dehydrated. Found to have MORGAN and UTI. PMH: PNA, GERD, HTN, Nicotine dependence in remission, PUD s/p surgical mgmt, Asbestos exposure, musculoskeletal chest pain PShx: right arm, back, GI tract surgery for PUD, cervical fusion Allergies; see emr FH/SH; asbestos-containing building demolition in 1974, Etoh use -heavy for 15 yrs; Meds; see MAR ROS; no f/c/s/N/V/D/ED LA TORRE/skin rash/back pain/focal limb weakness/confusion/dizziness/ v/s; revd PE: tired appearing anicteric ns1s2 Chest wall tender in left region; mod bs soft nt nd no e/t skin dry n. affect a&ox3; leon labs/meds revd A/P: 68yoM MORGAN- IVF UTI- IV abx Hyponatremia- IVF HTN- amlodipine GERD- pepcid Nicotine dependence in remission- U/S abdomen outpt with PCP Prop: lovenox; pepcid Dispo: f/u cardio jaelal Les Fong MD, PhD
[2019-08-23] MEDS ORDERED: ONDANSETRON HCL INJ 2MG/ML 2ML 2 MG/ML VIAL IV PRN (06:15)
[2019-08-23] MEDS ORDERED: DOCUSATE SODIUM 100 MG CAP PO PRN (06:15)
[2019-08-23] MEDS ORDERED: ZOLPIDEM TARTRATE 5 MG TAB PO PRN (06:15)
[2019-08-23] MEDS ORDERED: CEFTRIAXONE SOD 1 GM/NS 50 ML 50 ML IV SCH (06:15)
[2019-08-23] MEDS ORDERED: ACETAMINOPHEN 325 MG TAB PO PRN (06:15)
[2019-08-23] MEDS ORDERED: PANTOPRAZOLE SOD 40 MG TABEC PO SCH (09:00)
[2019-08-23] MEDS ORDERED: AMLODIPINE BESYLATE 5 MG TAB PO SCH (09:00)
[2019-08-23] MEDS ORDERED: LORATADINE 10 MG TAB PO SCH (09:00)
--- NOTE | 2019-08-23 11:54 | NUR ---
Spoke with Dr. Fong regarding patients orders, patient admitted for dehydration, but has no maintenance fluids. Was given an order for NS at 60 mL/hr.
[2019-08-23] MEDS ORDERED: SODIUM CHLORIDE 0.9% 1000ML 1,000 ML IV SCH (12:00)
--- NOTE | 2019-08-23 14:00 | NUR ---
Patient still awaiting an inpatient bed.
--- NOTE | 2019-08-23 14:30 | NUR ---
Spoke with patient. States that he feels extremely better. States that he is no longer experiencing dizziness. Patient able to ambulate down the hallway with a steady gate.
--- NOTE | 2019-08-23 15:14 | NUR ---
Spoke with Dr. Fong regarding improvement of patients physical status. Dr. Fong would like to get a stat BMP and to be called with the results.
[2019-08-23 16:31] LABS: BLOOD UREA NITROGEN 16 mg/dL (7-26); BUN/CREATININE RATIO 17 (6-25); CALCIUM 9.2 mg/dL (8.4-10.2); CARBON DIOXIDE 26 mmol/L (22-29); CHLORIDE 106 mmol/L (98-107); CREATININE, SERUM 0.96 mg/dL (0.72-1.25); EST GLOMERULAR FILTRATION RATE > 60 ML/MIN (60-); GLUCOSE 76 mg/dL (74-118); SODIUM 139 mmol/L (136-145)
--- NOTE | 2019-08-23 16:58 | NUR ---
D/C summary Principal Dx: MORGAN- IVF UTI- IV abx Hyponatremia- IVF Secondary dx: HTN- amlodipine GERD- pepcid Nicotine dependence in remission- U/S abdomen outpt with PCP Prop: lovenox; pepcid Dispo: f/u cardio eval pt rec'd IVF, Na improved; Renal function better; home on keflex. d/c home stable d/c>35mins f/u pcp 1 week Les Fong MD, PhD
--- NOTE | 2019-08-23 16:59 | NUR ---
Spoke with Dr. Fong informed him that patients BMP has improved. Dr. Fong stated that patient can be discharged and that he would call in antibitotics for his urinary tract infection.
--- NOTE | 2019-08-23 17:12 | NUR ---
Patient discharged from ER. Given discharge paperwork and informed that Dr. Fong has sent an antibiotic to his pharmacy. Patient verbalized understanding.
[2019-08-23] MEDS ORDERED: NON-FORMULARY MEDICATION (Amitriptyline Hcl 100 MG) PO SCH (21:00)
[2019-08-23] MEDS ORDERED: AMITRIPTYLINE HCL 25 MG TAB PO SCH (21:00)
== END 2019-08-23 17:03 | disposition home or self-care (01) ==
LOC: ER 22:16 → ERHOLD 08-23 03:08
PROVIDERS: ADMIT Internal Medicine; ATTEND Internal Medicine
DX: N17.9 Acute kidney failure, unspecified (principal); N39.0 Urinary tract infection, site not specified; Z87.891 Personal history of nicotine dependence; Z77.090 Contact with and (suspected) exposure to asbestos; K21.9 Gastro-esophageal reflux disease without esophagitis; I10 Essential (primary) hypertension; E87.1 Hypo-osmolality and hyponatremia
CPT/HCPCS: 36415 ×2; 70450; 71045; 80048; 80053; 81001; 82550; 82553; 84484; 85025; 87635; 93005; 99284; G0378; J0696; J7030; S0164

== ENCOUNTER → 2019-12-31 | Outpatient (CLI) | payer MEDICARE | LOC: CARD 13:35 | PROVIDERS: ATTEND Internal Medicine | DX: R42 Dizziness and giddiness (principal) | CPT/HCPCS: 93880 ==

== ENCOUNTER → 2019-12-31 | Outpatient (CLI) | payer MEDICARE ==
[~2019-12-31] MED LIST changes: +ALBUTEROL SULFATE HFA 8GM INHALATION AEROSOL INH ONE
--- NOTE | 2019-12-31 14:47 | Diagnostic Imaging Report ---
EXAM: CT Chest WITHOUT intravenous contrast 12/31/2019 1:30 PM INDICATION: ^[id number] ^1330 ^SHORTNESS OF BREATH COMPARISON: 05/19/2019 TECHNIQUE: Chest was scanned utilizing a multidetector helical scanner from the lung apex through the level of the adrenal glands without administration of IV contrast. Coronal and sagittal reformations were obtained. Routine protocol was performed. IV CONTRAST: None RADIATION DOSE: Total DLP: 423 mGy*cm. Dose modulation, iterative reconstruction, and/or weight based adjustment of the mA/kV was utilized to reduce the radiation dose to as low as reasonably achievable. COMPLICATIONS: None FINDINGS: LINES/ TUBES: None. LUNGS AND AIRWAYS: Large airways are patent. There are multifocal opacities within the right middle lobe dependently at the inferior aspect. Stable moderate to severe apical predominant emphysematous changes. Stable scarring at the lung apices. PLEURA: The pleural spaces are clear. HEART AND MEDIASTINUM: The thyroid gland is normal. No mediastinal, hilar or axillary lymphadenopathy. The heart is normal in size.. There is no pericardial effusion. Scattered atherosclerotic changes of the arch and coronary arteries are noted. UPPER ABDOMEN: Postoperative changes from cholecystectomy are noted. Postsurgical changes are identified along the lesser curvature of the stomach and gastrohepatic margin. BONES: No acute osseous abnormality. No suspicious lytic or blastic lesion. Partially visualized anterior cervical fusion changes are noted. SOFT TISSUES: Unremarkable. IMPRESSION: 1. Right middle lobe pneumonia. 2. Stable background of centrilobular emphysematous changes. The above findings were discussed with Dr. Sutton on 12/31/2019 2:36 PM, who responded indicating that the communication was understood. Signed by: Santosh Zaldivar MD on 12/31/2019 2:44 PM
== END ==
LOC: RESP 13:07
PROVIDERS: ATTEND Internal Medicine Critical Care Medicine
DX: R06.02 Shortness of breath (principal); J18.9 Pneumonia, unspecified organism; J84.116 Cryptogenic organizing pneumonia; J47.9 Bronchiectasis, uncomplicated; J84.10 Pulmonary fibrosis, unspecified; M94.0 Chondrocostal junction syndrome [Tietze]; E46 Unspecified protein-calorie malnutrition; Z87.891 Personal history of nicotine dependence
CPT/HCPCS: 71250; 94060; 94664; 94727; 94729

== ENCOUNTER → 2020-05-04 | Outpatient (CLI) | payer MEDICARE ==
[~2020-05-04] MED LIST changes: -ALBUTEROL SULFATE HFA 8GM INHALATION AEROSOL INH ONE; +REGADENOSON 0.4 MG/5 ML SYR IV ONE
== END ==
LOC: DX 07:11
PROVIDERS: ATTEND Internal Medicine
DX: R07.9 Chest pain, unspecified (principal)
CPT/HCPCS: 78452; 93017; 93930; A9502; J2785

== ENCOUNTER → 2020-08-24 | Outpatient (CLI) | payer MEDICARE ==
[~2020-08-24] MED LIST changes: +IOPAMIDOL 370 MG/ML 200 ML INFUS..BTL INJ ONE; -REGADENOSON 0.4 MG/5 ML SYR IV ONE; +SODIUM CHLORIDE 0.9% 100 ML ONE
== END ==
LOC: CT 13:08
PROVIDERS: ATTEND Internal Medicine
DX: I70.0 Atherosclerosis of aorta (principal)
CPT/HCPCS: J7050; Q9967

== ENCOUNTER → 2020-08-25 | Outpatient (CLI) | payer MEDICARE | LOC: CT 12:27 | PROVIDERS: ATTEND Internal Medicine | DX: I70.0 Atherosclerosis of aorta (principal); I71.2 Thoracic aortic aneurysm, without rupture | CPT/HCPCS: 71275; J7050; Q9967 ==

== ENCOUNTER → 2024-07-08 | Outpatient (REF) | payer MEDICARE ==
[~2024-07-08] MED LIST changes: +ALBUTEROL SULF 0.083% NEB SOLN 3 ML NEB ONE; -IOPAMIDOL 370 MG/ML 200 ML INFUS..BTL INJ ONE; -SODIUM CHLORIDE 0.9% 100 ML ONE
== END ==
LOC: RESP 09:05 → EDSTATUS 10:00
PROVIDERS: ATTEND Internal Medicine
DX: R06.02 Shortness of breath (principal); J44.9 Chronic obstructive pulmonary disease, unspecified; J43.9 Emphysema, unspecified; Z87.891 Personal history of nicotine dependence
CPT/HCPCS: 94060; 94727; 94729